=== PATIENT | male | born 1940 | race Caucasian/White ===

== ENCOUNTER 2018-07-01 20:37 | Emergency (ER) | payer MEDICARE ==
[2018-07-01 21:34] LABS: #Basophils 0.1 thou/uL (0.0-0.2); #Eosinphils 0.2 thou/uL (0.0-0.7); #Lymphocytes 1.7 thou/uL (1.20-3.40); #Monocytes 0.7 thou/uL (0.11-0.59); #Neutrophils 4.7 thou/uL (1.40-6.50); %Eosinophils 3.3 % (0.0-10.0); %Lymphocytes 22.4 % (21.0-51.0); %Monocytes 9.5 % (0.0-10.0); %Neutrophils 63.9 % (42.0-75.0); Hemoglobin 13.7 g/dL (14.0-18.0); Mean Corpuscular HGB CONC 34.5 g/dL (32.0-36.0); Mean Corpuscular Volume 92.8 fL (78.0-98.0); Mean Platelet Volume 7.6 fL (7.4-10.4); Platelet Count 172 thou/uL (130-400); RBC Distribution Width 10.7 % (11.5-14.5); White Blood Cell (WBC) Count 7.4 thou/uL (4.8-10.8)
[2018-07-01 21:43] LABS: Anion Gap 11 mmol/L (10-20); BUN (Urea Nitrogen) 15 mg/dL (8.4-25.7); Calc. Creatinine Clearance 0 mL/min (70-130); Calcium 9.1 mg/dL (7.8-10.44); Carbon Dioxide 28 mmol/L (23-31); Chloride 106 mmol/L (98-107); Estimated GFR-MDRD Greater than 90; Glucose 111 mg/dL (83-110); Potassium 3.8 mmol/L (3.5-5.1); Sodium 141 mmol/L (136-145)
[2018-07-01 21:46] LABS: CKMB 0.8 ng/mL (0-6.6); Troponin I 0.015 ng/mL (< 0.028)
[2018-07-01] MEDS ORDERED: Ondansetron HCl/PF 4 MG/2 ML Vial ONE (21:46)
--- NOTE | 2018-07-01 21:58 | CT ---
CT BRAIN WITHOUT CONTRAST 07/01/18 HISTORY: Vertigo. COMPARISON: None. FINDINGS: No acute territorial infarct or hemorrhage. No midline shift or mass effect. Ventricular size and ext ra-axial CSF spaces are normal. Calvarium is intact. Mastoids are clear. Mild mucosal thickening of the ethmoids. Mucosal retention c yst in both maxillary sinuses. Clivus is intact. IMPRESSION: No acute intracranial abnormality. POS: [facility]
[2018-07-01] MEDS ORDERED: Meclizine HCl 25 MG TAB ONE (22:34)
[2018-07-01] MEDS ORDERED: Diazepam 5 MG TAB ONE (23:12)
== END 2018-07-02 00:06 | disposition home or self-care (01) ==
LOC: SCSER 20:37
DX: H81.11 Benign paroxysmal vertigo, right ear (principal); I48.91 Unspecified atrial fibrillation
CPT/HCPCS: 70450; 80048; 82553; 84484; 85025; 93005; 96374; J2405

== ENCOUNTER 2019-11-03 16:49 | Observation (INO) | payer MEDICARE ==
[2019-11-03 17:15] LABS: #Eosinphils 0.1 thou/uL (0.0-0.7); #Lymphocytes 1.1 thou/uL (1.20-3.40); #Monocytes 0.6 thou/uL (0.11-0.59); #Neutrophils 4.5 thou/uL (1.40-6.50); %Basophils 0.6 % (0.0-1.0); %Lymphocytes 17.9 % (21.0-51.0); %Monocytes 9.4 % (0.0-10.0); %Neutrophils 70.1 % (42.0-75.0); Hemoglobin 13.7 g/dL (14.0-18.0); Mean Corpuscular HGB CONC 32.3 g/dL (32.0-36.0); Mean Corpuscular Hemoglobin 31.4 pg (27.0-31.0); Mean Corpuscular Volume 97.3 fL (78.0-98.0); Mean Platelet Volume 8.6 fL (7.4-10.4); Platelet Count 169 thou/uL (130-400); Red Blood Cell (RBC) Count 4.35 mill/uL (4.70-6.10); White Blood Cell (WBC) Count 6.4 thou/uL (4.8-10.8)
[2019-11-03 17:35] LABS: ALT (SGPT) 16 U/L (8-55); AST (SGOT) 14 U/L (5-34); Albumin 3.9 g/dL (3.4-4.8); Alkaline Phosphatase 87 U/L (40-110); Anion Gap 11 mmol/L (10-20); BUN (Urea Nitrogen) 11 mg/dL (8.4-25.7); Bilirubin, Total 0.8 mg/dL (0.2-1.2); Calc. Creatinine Clearance 0 mL/min (70-130); Calcium 8.7 mg/dL (7.8-10.44); Carbon Dioxide 29 mmol/L (23-31); Chloride 106 mmol/L (98-107); Estimated GFR-MDRD 80; Globulin 2.8 g/dL (2.4-3.5); Glucose 105 mg/dL (83-110); Potassium 3.5 mmol/L (3.5-5.1); Protein, Total 6.7 g/dL (5.8-8.1); Sodium 142 mmol/L (136-145)
--- NOTE | 2019-11-03 19:35 | RAD ---
RADIOGRAPH CHEST 1 VIEW: DATE: 11/03/2019 HISTORY: 78-year-old male with atrial fibrillation FINDINGS: The thoracic aorta is tortuous and ectatic. There is no evidence of airspace density, cardiomegaly, p ulmonary edema, or pneumothorax. The lateral costophrenic angles are not effaced. IMPRESSION: 1) No acute pulmonary findings. 2) ectasia of thoracic aorta.
[2019-11-03 20:00] LABS: CKMB 1.5 ng/mL (0-6.6)
[2019-11-03] MEDS ORDERED: Aspirin Chewable 81 MG TAB ONE (21:16)
[2019-11-03 22:31] LABS: Troponin I 0.074 ng/mL (< 0.028)
[2019-11-03] MEDS ORDERED: Ondansetron PF 4 MG/2 ML Vial IVP PRN (22:41)
[2019-11-03] MEDS ORDERED: Acetaminophen 325 MG TAB PO PRN (22:41)
[2019-11-03] MEDS ORDERED: Ondansetron ODT 4 MG TAB SL PRN (22:41)
[2019-11-03 22:45] VITALS: BMI 31.1
[2019-11-04] MEDS ORDERED: cloNIDine 0.1 MG TAB PO PRN (00:01)
[2019-11-04] MEDS ORDERED: Ondansetron PF 4 MG/2 ML Vial IVP PRN (00:01)
[2019-11-04] MEDS ORDERED: hydrALAZINE 20 MG/ML VIAL SLOW IVP PRN (00:01)
[2019-11-04] MEDS ORDERED: Promethazine HCl 12.5 MG in Sodium Chloride 0.9% 50 ML IVPB PRN (00:01)
--- NOTE | 2019-11-04 00:01 | PDOC.HHP ---
Hospitalist HPI - History of Present Illness Chest pain History of Present Illness: Patient is a 78 year old male with PMH afib who presents to ED after nurse told him to come here, darian was having chest pain and was told he was in afib by the nurse. He reported some urinary difficulty last night, in ED prostate exam with diffuse enlargement and PSA checked and 20. At time of interview, patient denies having chest pain but admits to urinary difficulty. EKG NSR in ED. ED Course: VITAL SIGNS WedNov 03, 2019 22:25 WINDY Alcazar, [facility] BP: 133/72 Pulse: 73 Resp: 16 Temp: 98.4 (Oral) Pain: 0 O2 sat: 95 on (Room Air) Time: 11/03/2019 22:25. EKG NSR [address] changes Hospitalist ROS - Review of Systems Constitutional: denies: fever, chills, sweats, weakness, malaise, other Eyes: denies: pain, vision change, conjunctivae inflammation, eyelid inflammation, redness, other ENT: denies: ear pain, ear discharge, nose pain, nose discharge, nose congestion , mouth pain, mouth swelling, throat pain, throat swelling, other Respiratory: denies: cough, dry, shortness of breath, hemoptysis, SOB with excertion, pleuritic pain, sputum, wheezing, other Cardiovascular: reports: chest pain, light headedness. denies: palpitations Gastrointestinal: denies: nausea, vomiting, abdominal pain, diarrhea, constipation, melena, hematochezia, other Genitourinary: reports: other (difficulty urinatinh) Musculoskeletal: denies: neck pain, shoulder pain, arm pain, back pain, hand pain, leg pain, foot pain, other Skin: denies: rash, lesions, shayne, bruising, other Neurological: denies: weakness, numbness, incoordination, change in speech, confusion, seizures, other All other systems reviewed; all pertinent +/- noted in HPI/Subj Hospitalist History - Past Medical History Other Medical History: enlarged prostate. AFIB. - Past Surgical History Other Surgical History: tonsillectomy, inguinal hernia repair. - Family History Family History: reports: no pertinent history - Social History Other Social History: Patient denies alcohol use, Patient denies drug use, Patient has no smoking history - Exam General Appearance: NAD, awake alert Eye: PERRL, anicteric sclera ENT: normocephalic atraumatic, no oropharyngeal lesions, moist mucosa Neck: supple, symmetric, no JVD, no thyromegaly, no lymphadenopathy, no carotid bruit Heart: RRR, no murmur, no gallops, no rubs, normal peripheral pulses Respiratory: CTAB, no wheezes, no rales, no ronchi, normal chest expansion, no tachypnea, normal percussion Gastrointestinal: soft, non-tender, non-distended, normal bowel sounds, no palpable masses, no hepatomegaly, no splenomegaly, no bruit Extremities: no cyanosis, no clubbing, no edema Skin: normal turgor, no lesions, no rashes Neurological: cranial nerve grossly intact, normal sensation to touch, no weakness, no focal deficits, no new deficit Musculoskeletal: normal tone, normal strength, no muscle wasting Psychiatric: normal affect, normal behavior, A&O x 3 Hospitalist Results - Labs Result Diagrams: 11/03/19 17:02 11/03/19 17: Lab results: WBC 6.4 thou/uL (4.8-10.8) 11/03/19 17:02 Hgb 13.7 g/dL (14.0-18.0) L 11/03/19 17: Hct 42.3 % (42.0-52.0) 11/03/19 17:02 MCV 97.3 fL (78.0-98.0) 11/03/19 17:02 Plt Count 169 thou/uL (130-400) 11/03/19 17: Neutrophils % 70.1 % (42.0-75.0) 11/03/19 17:02 Sodium 142 mmol/L (136-145) 11/03/19 17:02 Potassium 3.5 mmol/L (3.5-5.1) 11/03/19 17:02 Chloride 106 mmol/L (98-107) 11/03/19 17:02 Carbon Dioxide 29 mmol/L (23-31) 11/03/19 17: BUN 11 mg/dL (8.4-25.7) 11/03/19 17: Creatinine 0.92 mg/dL (0.7-1.3) 11/03/19 17:02 Glucose 105 mg/dL (83-110) 11/03/19 17:02 Calcium 8.7 mg/dL (7.8-10.44) 11/03/19 17:02 Total Bilirubin 0.8 mg/dL (0.2-1.2) 11/03/19 17:02 AST 14 U/L (5-34) 11/03/19 17:02 ALT 16 U/L (8-55) 11/03/19 17:02 Alkaline Phosphatase 87 U/L (40-110) 11/03/19 17:02 CK-MB (CK-2) 1.5 ng/mL (0-6.6) 11/03/19 19:09 Troponin I 0.074 ng/mL (< 0.028) H 11/03/19 21:59 Serum Total Protein 6.7 g/dL (5.8-8.1) 11/03/19 17:02 Albumin 3.9 g/dL (3.4-4.8) 11/03/19 17:02 Hospitalist H&P A/P - Plan Plan: Patient is a 78 year old male with PMH afib # atrial fibrillation - resolved now, troponing elevated, trend troponin, continue DVT ppx lovenox and ASA, telemetry, consider cardiology consult based on clinical progress # elevated PSA, enlarged prostate - consult urology, bladder scan q6h and straight cath or sotomayor if over 300cc residual
[2019-11-04] MEDS ORDERED: HYDROcodone/Acetaminophen 5/325 mg Tablet PO PRN (00:03)
[2019-11-04] MEDS ORDERED: Bisacodyl 10 MG SUPP PR PRN (00:03)
[2019-11-04] MEDS ORDERED: Bisacodyl 5 MG TAB PO PRN (00:03)
[2019-11-04 04:39] LABS: #Eosinphils 0.2 thou/uL (0.0-0.7); #Lymphocytes 1.7 thou/uL (1.20-3.40); #Monocytes 0.6 thou/uL (0.11-0.59); #Neutrophils 3.9 thou/uL (1.40-6.50); %Basophils 0.6 % (0.0-1.0); %Eosinophils 3.1 % (0.0-10.0); %Lymphocytes 26.2 % (21.0-51.0); %Monocytes 8.9 % (0.0-10.0); %Neutrophils 61.2 % (42.0-75.0); Hemoglobin 13.1 g/dL (14.0-18.0); Mean Corpuscular HGB CONC 32.7 g/dL (32.0-36.0); Mean Corpuscular Hemoglobin 32.4 pg (27.0-31.0); Mean Platelet Volume 8.5 fL (7.4-10.4); Platelet Count 164 thou/uL (130-400); Red Blood Cell (RBC) Count 4.05 mill/uL (4.70-6.10); White Blood Cell (WBC) Count 6.4 thou/uL (4.8-10.8)
[2019-11-04 04:58] LABS: Anion Gap 10 mmol/L (10-20); BUN (Urea Nitrogen) 15 mg/dL (8.4-25.7); Calc. Creatinine Clearance 100 mL/min (70-130); Calcium 8.6 mg/dL (7.8-10.44); Carbon Dioxide 28 mmol/L (23-31); Chloride 109 mmol/L (98-107); Estimated GFR-MDRD 82; Glucose 90 mg/dL (83-110); Sodium 143 mmol/L (136-145)
[2019-11-04 05:05] LABS: Troponin I 0.065 ng/mL (< 0.028)
[2019-11-04] MEDS: Aspirin 81 mg Enteric Coated Tablet PO SCH (09:00)
[2019-11-04] MEDS ORDERED: Enoxaparin Sodium 40 MG/0.4 ML SYRINGE SC SCH (09:00)
[2019-11-04] MEDS: Polyethylene Glycol 3350 17 GM Packet PO SCH (09:01)
[2019-11-04 10:24] LABS: Troponin I 0.051 ng/mL (< 0.028)
[2019-11-04 16:20] LABS: Troponin I 0.045 ng/mL (< 0.028)
--- NOTE | 2019-11-04 16:56 | PDOC.HOSPP ---
- Subjective Encounter Date: 11/04/19 Encounter Time: 16:45 Subjective: f/u for CP, near syncope, PAF with return to sinus mechanism and elevated Troponin I. - Objective Vital Signs & Weight: Vital Signs (12 hours) Temp Pulse Pulse Pulse Resp BP BP 11/04/19 15:12 97.9 F 64 16 11/04/19 11:48 98.0 F 66 16 11/04/19 10:32 65 67 153/85 H 145/76 H 11/04/19 07:43 97.7 F 67 20 BP BP BP Pulse Ox Pulse Ox 11/04/19 15:12 119/66 98 11/04/19 11:48 132/68 95 11/04/19 10:32 97 11/04/19 07:43 146/79 H 134/66 145/77 H 95 Weight Weight 226 lb 6.4 oz I&O: 11/03/19 11/04/19 11/05/19 06:59 06:59 06:59 Intake Total 360 Output Total 300 1135 Balance -300 -775 Result Diagrams: 11/04/19 04:21 11/04/19 04:21 Additional Labs: Laboratory Tests 11/03/19 11/03/19 11/03/19 17:02 18:10 19:09 Hgb 13.7 L Troponin I 0.052 H Prostate Specific Ag 20.73 H 11/03/19 11/04/19 11/04/19 21:59 00:54 04:21 Hgb Troponin I 0.074 H 0.070 H 0.065 H Prostate Specific Ag 11/04/19 11/04/19 09:33 15:44 Hgb Troponin I 0.051 H 0.045 H Prostate Specific Ag Radiology Reviewed by me: Yes (PCXR - no acute process) EKG Reviewed by me: Yes (Tele - SR) Hospitalist ROS - Medication Medications: Active Medications Generic Name Dose Route Start Last Admin Trade Name Freq PRN Reason Stop Dose Admin Aspirin 81 mg 11/04/19 09:00 11/04/19 09:00 Ecotrin PO 81 mg DAILY KATHY Administration Enoxaparin Sodium 40 mg 11/04/19 09:00 11/04/19 09:00 Lovenox SC 40 mg 0900 KATHY Administration Pantoprazole Sodium 40 mg 11/04/19 09:00 11/04/19 09:00 Protonix PO 40 mg DAILY KATHY Administration Polyethylene Glycol 17 gm 11/04/19 09:00 11/04/19 09:01 Miralax PO 17 gm DAILY KATHY Administration - Exam General Appearance: NAD, awake alert Eye: PERRL, anicteric sclera ENT: normocephalic atraumatic, no oropharyngeal lesions Neck: supple, symmetric, no JVD, no thyromegaly Heart: RRR, no gallops, no rubs, normal peripheral pulses Respiratory: CTAB, no wheezes, no rales, no ronchi, normal chest expansion Gastrointestinal: soft, non-tender, non-distended, normal bowel sounds, no palpable masses Extremities: no cyanosis, no clubbing, no edema Skin: normal turgor, no lesions Neurological: cranial nerve grossly intact, no new deficit Musculoskeletal: normal tone Psychiatric: normal affect, A&O x 3 Hosp A/P (1) Syncope Code(s): R55 - SYNCOPE AND COLLAPSE Status: Acute Plan: Likely due to #2, check 2D echo, Carotid sono, Orthostatic vitals (2) Atrial fibrillation Code(s): I48.91 - UNSPECIFIED ATRIAL FIBRILLATION Status: Acute Qualifiers: Atrial fibrillation type: paroxysmal Qualified Code(s): I48.0 - Paroxysmal atrial fibrillation Plan: PAF, check Echo, Cardiology consult appreciated, plan for either SHUTTLE THREADER vs heart cath, start Metoprolol 12.5mg BID (3) NSTEMI (non-ST elevated myocardial infarction) Code(s): I21.4 - NON-ST ELEVATION (NSTEMI) MYOCARDIAL INFARCTION Status: Acute Plan: Likely Type II due to demand ischemia due to A-fib, ASA, plan for either SHUTTLE THREADER vs heart cath (4) BPH (benign prostatic hyperplasia) Code(s): N40.0 - BENIGN PROSTATIC HYPERPLASIA WITHOUT LOWER URINRY TRACT SYMP Status: Chronic Plan: Outpt follow with Urology - Plan plan discussed w/ family, out of bed/ambulate, DVT proph w/SCDs Stable currently Continue ASA Start Metoprolol 12.5mg BID 2D echo pending Carotid sono/Orthostatic vitals Cardiology consult appreciated
--- NOTE | 2019-11-04 17:58 | CON ---
DATE OF CONSULTATION: 11/04/2019 REQUESTING PHYSICIAN: Mitch Woodall MD REASON FOR CONSULTATION: Elevated PSA and urinary retention. HISTORY OF PRESENT ILLNESS: Mr. Mckenzie is a 78-year-old male with past urologic history significant for elevated PSA and BPH, who has not followed up with Urology in several years. The patient has not received routine medical care in quite some time as well. He presented to the [facility] ER after home health nurse told him he was having an episode of atrial fibrillation while she was there evaluating his . The patient had had voiding difficulty several days previously. He actually went to the emergency department and had a catheter placed, and there was 1200 mL residual. They took the catheter out and sent him home and had him follow up with Urology; however, he did not keep that appointment. The patient was admitted for atrial fibrillation. By the time he presented, he had taken metoprolol at home, and he was in normal sinus rhythm. Given his urinary difficulty, he had a prostate exam which demonstrated diffuse enlargement and a PSA was performed during this hospitalization and was 20. Urology was consulted for further evaluation. Currently, the patient said his urinary symptoms have improved. He has voided approximately 4 times since noon with a volume over 1 L, they have been checking postvoid residuals and these have been acceptable. He denies any gross hematuria. He feels that he is emptying his bladder to completion. The patient has history of a prostate biopsy well over 20 years ago. He states that his PSA has been as high as 15 in the past. For a while, he took finasteride and terazosin, but has not taken this in years. He has no other complaints at this time. REVIEW OF SYSTEMS: Full 12-point review of systems was performed and is negative other than that mentioned in HPI. PAST MEDICAL HISTORY: BPH and atrial fibrillation. PAST SURGICAL HISTORY: Tonsillectomy, inguinal hernia repair. FAMILY HISTORY: Noncontributory. SOCIAL HISTORY: No alcohol, tobacco, or illicit drugs. HOME MEDICATIONS: None. PHYSICAL EXAMINATION: VITAL SIGNS: Temperature 97.9, pulse 64, respirations 16, oxygen saturation 98% on room air, and blood pressure 119/66. GENERAL: He is awake and alert, in no apparent distress. CARDIOVASCULAR: Regular rate and rhythm. PULMONARY: Breathing unlabored. ABDOMEN: Soft, nontender/nondistended. No masses or organomegaly. No suprapubic tenderness to palpation. No CVA tenderness. EXTREMITIES: Warm, well perfused. No edema. NEUROLOGIC: No focal deficits. LABORATORY DATA: Hemoglobin 13.1, hematocrit 40.1. Chemistry; sodium 143, potassium 4.0, chloride 109, bicarb 28, BUN 15, and creatinine 0.9. Troponins peaked at 0.074 and currently is 0.045. PSA is 20.73. ASSESSMENT: A 78-year-old male with benign prostatic hypertrophy and elevated PSA. PLAN: Currently, the patient is voiding adequately. I recommend he start tamsulosin and continue this as an outpatient at 0.4 mg daily. He was provided my contact information, and I discussed the need for him to follow up as an outpatient for further evaluation of his BPH and elevated PSA. I reviewed possible etiologies of elevated PSA with the patient. All questions were addressed. Start tamsulosin. Further evaluation as an outpatient. Job ID: [id number]
[2019-11-04] MEDS: Metoprolol Tartrate 25 MG TAB PO SCH (20:17)
[2019-11-04] MEDS: Apixaban 5 MG TAB PO SCH (20:17)
[2019-11-04] MEDS ORDERED: Tamsulosin HCl 0.4 MG CAP PO SCH (21:00)
--- NOTE | 2019-11-04 21:10 | CON ---
DATE OF CONSULTATION: 11/04/2019 INDICATION FOR CONSULTATION: A 78-year-old patient with intermittent atrial fibrillation. HISTORY OF PRESENT ILLNESS: This is a 78-year-old gentleman who has had a history of atrial fibrillation in the past. He was seen back in [address] Tate, at which time he had very similar episodes as to what occurred on this time. He was at home, became lightheaded and dizzy, laid down on the floor on this admission, but on last admission he became lightheaded and dizzy and was found to be in atrial fibrillation and rapid ventricular response. At this time, home health care was at his house taking care of the , visiting the when he was in the kitchen table, complaining of being dizzy or lightheaded and sitting down to lie down on the floor and he was noticed to be in atrial fibrillation with rapid ventricular response. He was brought to the emergency room. He has been placed on IV diltiazem and then converted back to sinus rhythm. At this time, he remains in sinus rhythm. On discussion with the patient, he said he has had several episodes in the last year or so where he has short episodes of atrial fibrillation and feels very badly. He stops doing what he is doing and usually it just resolves. When he was seen before in the hospital, he did not follow up in the office. He has not had an echocardiogram or a stress test as far as I can determine. He has not been taking medications for the atrial fibrillation and also not any oral anticoagulation. We had a long discussion about that and also when someone is in the room we encouraged him to take his medications. PAST MEDICAL HISTORY: Significant for intermittent atrial fibrillation. He has had a hernia repair, he had varicose veins, but he has not had any venous stripping. Otherwise, he appears to be relatively healthy gentleman. He has had no other significant past medical history. He does have some benign prostatic hypertrophy. He has also had a tonsillectomy. SOCIAL HISTORY: He is . He has children, who are alive and well. He has no alcohol or tobacco abuse. He was a teacher in the past. ALLERGIES: HE HAS NO KNOWN DRUG ALLERGIES. MEDICATIONS: Home medications include: 1. Terazosin. 2. Proscar. 3. Metoprolol 25 mg half a tab twice daily. REVIEW OF SYSTEMS: A 12-point review of system is unremarkable except what is noted in the history of present illness. PHYSICAL EXAMINATION: GENERAL: Reveals a well-developed, well-nourished gentleman, who is in no acute distress. He is alert. He is oriented. VITAL SIGNS: Blood pressure is 145/76. He did not have any evidence of orthostasis. Heart rate is 67 and regular at this time. He is afebrile. Respiratory rate is 20. HEENT: Shows the head to be normocephalic and atraumatic. NECK: Carotid pulses are present. There are no bruits. CHEST: Clear to auscultation. No rales, rhonchi, or wheezing. CARDIOVASCULAR: Reveals at this time a regular rate and rhythm. He has a normal S1, S2. There was no S3 or S4. There were no significant murmurs, heaves, thrills, bruits, or rubs noted. ABDOMEN: Soft and nontender. Positive bowel sounds are present. There is no organomegaly or masses noted. Femoral pulses are present. EXTREMITIES: Show no clubbing, cyanosis, or edema. He has evidence of varicose veins and large legs, but no edema is noted. Pedal pulses are present. NEUROLOGIC: He is fully intact. He is able to ambulate without difficulties. LABORATORY DATA: Shows a troponin I on admission of 0.052, which increased up to 0.074 and then decreased back down to 0.045 and most likely associated with the tachycardia with the atrial fibrillation. His other laboratory data shows sodium of 143, BUN was 15, creatinine 0.9, blood sugar was 90. Hemoglobin is 13.1, WBC of 6.4, platelet count of 164,000. IMPRESSION: 1. Elderly gentleman with intermittent atrial fibrillation, which has converted back to sinus rhythm with medical management. I would suggest at this time that we start him on some type of oral medication to prevent his atrial fibrillation, but would advise also that he undergo an echocardiogram as well as stress testing to rule out evidence of underlying ischemia and also to evaluate the left atrial size and the left ventricular systolic function prior to starting medications. At this time, he remains stable on the beta blockers at a low dose. Once he is discharged from the hospital, would advise he undergo at least a 2-4 week Holter monitor to see whether or not the medication is functioning correctly and to see whether or not he continues to have episodes of atrial fibrillation. 2. History of benign prostatic hypertrophy, this is stable. I believe his BNP was slightly elevated. This can be dealt with as an outpatient. Further recommendations will depend on the results of the echocardiogram. We are unable to get any stress testing at this time due to problems with the equipment, but certainly he could undergo the stress testing as an outpatient. I have also suggested that he take some type of oral anticoagulation and I would suggest in this gentleman that he start Eliquis and then also would consider either amiodarone or Multaq in this elderly gentleman. Job ID: [id number]
[2019-11-05 05:16] LABS: #Eosinphils 0.3 thou/uL (0.0-0.7); #Lymphocytes 1.3 thou/uL (1.20-3.40); #Monocytes 0.6 thou/uL (0.11-0.59); %Basophils 0.4 % (0.0-1.0); %Lymphocytes 21.1 % (21.0-51.0); %Monocytes 9.6 % (0.0-10.0); %Neutrophils 64.8 % (42.0-75.0); Hemoglobin 12.9 g/dL (14.0-18.0); Mean Corpuscular HGB CONC 33.8 g/dL (32.0-36.0); Mean Corpuscular Hemoglobin 33.4 pg (27.0-31.0); Mean Corpuscular Volume 98.7 fL (78.0-98.0); Mean Platelet Volume 8.3 fL (7.4-10.4); Platelet Count 150 thou/uL (130-400); RBC Distribution Width 12.1 % (11.5-14.5); Red Blood Cell (RBC) Count 3.87 mill/uL (4.70-6.10); White Blood Cell (WBC) Count 6.2 thou/uL (4.8-10.8)
[2019-11-05 05:45] LABS: Anion Gap 11 mmol/L (10-20); BUN (Urea Nitrogen) 11 mg/dL (8.4-25.7); Calc. Creatinine Clearance 107 mL/min (70-130); Calcium 8.4 mg/dL (7.8-10.44); Carbon Dioxide 27 mmol/L (23-31); Chloride 107 mmol/L (98-107); Estimated GFR-MDRD 89; Glucose 98 mg/dL (83-110); Potassium 3.7 mmol/L (3.5-5.1); Sodium 141 mmol/L (136-145)
--- NOTE | 2019-11-05 09:16 | PDOC.CPN ---
- Subjective Date: 11/05/19 Time: 09:24 Interval history: The pt seen and examined. No overnight events. No cardiac complaints. - Objective Allergies/Adverse Reactions: Allergies Allergy/AdvReac Type Severity Reaction Status Date / Time Penicillins Allergy Verified 11/03/19 22:47 Sulfa (Sulfonamide Allergy Verified 11/03/19 22:47 Antibiotics) milk AdvReac stops nose Verified 11/03/19 22:47 up, thick secretions Visit Medications: Current Medications Hydrocodone Bitart/Acetaminophen ([place] 5/325) 1 tab PO Q4H PRN PRN Reason: Moderate Pain (4-6) Albuterol/Ipratropium (Duoneb) 3 ml NEB Q2H PRN PRN Reason: SOB &/or Wheezing Apixaban (Eliquis) 5 mg PO BID [facility] Last Admin: 11/04/19 20:17 Dose: 5 mg Aspirin (Ecotrin) 81 mg PO DAILY [facility] Last Admin: 11/04/19 09:00 Dose: 81 mg Bisacodyl (Dulcolax) 10 mg PO DAILYPRN PRN PRN Reason: Constipation Bisacodyl (Dulcolax) 10 mg [place] DAILYPRN PRN PRN Reason: Constipation Clonidine (Catapres) 0.1 mg PO Q4H PRN PRN Reason: SBP > 160, use second Hydralazine HCl (Apresoline) 10 mg SLOW IVP Q6H PRN PRN Reason: SBP GREATER THAN 160 Promethazine HCl 12.5 mg/ (Sodium Chloride) 50.5 mls @ 202 mls/hr IVPB Q6H PRN PRN Reason: Nausea/vomiting, use second Metoprolol Tartrate (Lopressor) 12.5 mg PO BID [facility] Last Admin: 11/04/19 20:17 Dose: 12.5 mg Ondansetron HCl (Zofran) 4 mg IVP Q6H PRN PRN Reason: Nausea/Vomiting, use 1st Pantoprazole Sodium (Protonix) 40 mg PO DAILY [facility] Last Admin: 11/04/19 09:00 Dose: 40 mg Polyethylene Glycol (Miralax) 17 gm PO DAILY [facility] Last Admin: 11/04/19 09:01 Dose: 17 gm Tamsulosin HCl (Flomax) 0.4 mg PO HS [facility] Last Admin: 11/04/19 20:16 Dose: 0.4 mg Vital Signs & Weight: Vital Signs Temp Pulse Resp BP BP BP BP 11/05/19 07:22 98.1 F 64 18 139/79 152/79 H 145/76 H 11/05/19 04:55 62 18 143/81 H Pulse Ox 11/05/19 07:22 94 L 11/05/19 04:55 95 Weight 226 lb 6.4 oz - Physical Exam General: alert & oriented x3 HEENT: mucus membranes moist Neck: supple neck Cardiac: regular rate and rhythm, S1/S2 Lungs: clear to auscultation Extremities: no edema Musculoskeletal: normal range of motion - Labs Result Diagrams: 11/05/19 04:59 11/05/19 04:59 Troponin/CKMB CK-MB (CK-2) 1.5 ng/mL (0-6.6) 11/03/19 19:09 Troponin I 0.045 ng/mL (< 0.028) H 11/04/19 15:44 - Telemetry Sinus rhythms and dysrhythmias: sinus rhythm - Assessment/Plan Assessment/Plan: 1. Prox Afib with RVR - remains in SR; cont. Metoprolol and Eliquis; waiting for Echo and Stress test; The pt may need EVR for 2-4 wks to eval recurrent afib 2. s/p Syncopal episode - Asymptomatic; Orthostatic BP is stable; waiting for carotid study result; plan for 2-4 wk EVR 3. BPH MAR reviewed * Dr Tate's pt Pt. seen and eval. by me. I agree with the A/P by the A[employer] WORKER.Further recommendations after above studies have been performed. Chest clear. RRR. gjm
[2019-11-05] MEDS ORDERED: ADENOSINE 60 MG/20 ML VIAL ONE (09:53)
--- NOTE | 2019-11-05 11:33 | ULT ---
EXAM: Carotid Doppler PROVIDED CLINICAL HISTORY: Near syncope COMPARISON: None FINDINGS: Grayscale and color Doppler sonography with spectral analysis was performed of the extracranial carot id system bilaterally. There is no evidence for a hemodynamically significant internal carotid artery stenosis by peak systolic velocity or ratio criteria. Antegrade flow is seen in the vertebral arteries. IMPRESSION: No sonographic evidence for a hemodynamically significant internal carotid artery stenosis.
[2019-11-05] MEDS: Metoprolol Tartrate 25 MG TAB PO SCH (14:33)
[2019-11-05] MEDS: Polyethylene Glycol 3350 17 GM Packet PO SCH (14:33)
[2019-11-05] MEDS: Apixaban 5 MG TAB PO SCH (14:33)
[2019-11-05] MEDS: Aspirin 81 mg Enteric Coated Tablet PO SCH (14:46)
--- NOTE | 2019-11-05 14:57 | NM ---
EXAM: NM Cardiac Stress W EF WF PROVIDED CLINICAL HISTORY: Atrial fibrillation COMPARISON: None RADIOPHARMACEUTICAL: 33 millicuries technetium 99m labeled sestamibi IV stress 9.8 millicuries technetium 99m labeled sestamibi IV rest FINDINGS: There is normal, homogeneous distribution of radiotracer throughout the left ventricular myocardium. Gated data demonstrate normal myocardial wall motion and thickening with calculated LVEF 63%. Calculated TID is 1.19. IMPRESSION: 1. No scintigraphic evidence for ischemia. 2. Calculated LVEF 63%.
[2019-11-05 15:26] VITALS: BP 176/81; TEMP 97.9
--- NOTE | 2019-11-06 00:46 | DIS ---
DATE OF ADMISSION: 11/03/2019 DATE OF DISCHARGE: 11/05/2019 DISCHARGE DIAGNOSES: 1. Paroxysmal atrial fibrillation with variable rate, stable. 2. Syncope secondary to #1. 3. Non-ST elevation myocardial infarction type 2 secondary to #1. 4. Benign prostatic hyperplasia. CONSULTATIONS: Dr. Bhagat with Cardiology Service. PERTINENT LABORATORY AND X-RAY FINDINGS: Troponin I ranged between 0.04 to 0.074. Prostate specific antigen 20.73. CBC showed a hemoglobin ranged between 12.9 to 13.7. Portable chest x-ray dated 11/03/2019 showed no acute cardiopulmonary process. Carotid Doppler study dated 11/05/2019, showed no hemodynamically significant stenosis. Cardiolite stress test dated 11/05/2019, showed no evidence for ischemia with calculated ejection fraction of 63%. 2D transthoracic echocardiogram pending at the time of this dictation. HOSPITAL COURSE: The patient was observed on the telemetry unit after initially presenting with chest pain and hypertension with associated atrial fibrillation. The patient was initially noted with paroxysmal atrial fibrillation with return to sinus mechanism. The patient was evaluated by the Cardiology Service due to mild troponin I elevation secondarily to the arrhythmia. The patient was initiated on aspirin 81 mg daily as well as Eliquis 5 mg b.i.d. and metoprolol 12.5 mg b.i.d. Current recommendations are for medical management with outpatient followup with an event monitor. The patient overall remained clinically stable during the hospital course, undergoing Cardiolite stress testing showing no evidence of underlying ischemia with calculated ejection fraction of 63%. 2D transthoracic echocardiogram was also performed with results pending at the time of this dictation. I have examined the patient at the time of discharge and discussed followup instructions. The patient verbalized understanding and agreement, ready for discharge on 11/05/2019. DISCHARGE MEDICATIONS: 1. Eliquis 5 mg p.o. b.i.d. 2. Metoprolol tartrate 12.5 mg p.o. b.i.d. 3. Enteric-coated aspirin 81 mg p.o. daily. 4. Flomax 0.4 mg p.o. at bedtime. 5. Terazosin 5 mg p.o. at bedtime. 6. Proscar 5 mg p.o. at bedtime. FOLLOWUP: The patient may follow up with a primary care provider of choice as the patient is wanting to pursue setting up his own appointment. The patient will follow up with Dr. Tate with [facility] and to call his office for appointment time and date to establish an event monitor. CONDITION ON DISCHARGE: Stable. ACTIVITY: Ad-venita. DIET: Heart healthy. CODE STATUS: Full. DISPOSITION: To home, 11/05/2019. Job ID: [id number]
--- NOTE | 2019-11-09 08:50 | STRESS ---
Acquisition Time: 2019-11-05 12:34:46 Total Exercise Time: 00:04:00 Test Indications: RECURRENT A-FIB Medications: Protocol: ADENOSINE Max HR: 086 BPM 60% of Pred: 143 BPM Max BP: 144/070 mmHG Max Work Load: 1.0 METS RESTING ECG: SINUS BRADYCARDIA AT 57 BPM SYMPTOMS: NONE APPROPRIATE BP RESPONSE FOR ADENOSINE ECTOPY: RARE PACS ECG STRESS: NO SIGNIFICANT CHANGES INTERPRETATION: NEGATIVE/AWAIT NUCLEAR IMAGES FOR DEFINITIVE DIAGNOSIS Confirmed by HEATHER REID ([id number]), medical editor TAMARA GARCIA ([id number]) on 11/09/2019 8:49:46 AM Referred By: Jenny REID Confirmed By:HEATHER REID
== END 2019-11-05 16:21 | disposition home or self-care (01) ==
LOC: ERS 16:49 → 2SW 22:34
PROVIDERS: ADMIT Internal Medicine; ATTEND Internal Medicine
DX: I48.0 Paroxysmal atrial fibrillation (principal); I21.A1 Myocardial infarction type 2; N40.0 Benign prostatic hyperplasia without lower urinary tract symptoms; Z79.899 Other long term (current) drug therapy; Z88.0 Allergy status to penicillin; Z88.2 Allergy status to sulfonamides; Z91.011 Allergy to milk products
CPT/HCPCS: 71045; 78452; 80048 ×2; 80053; 82553; 84484 ×4; 85025 ×3; 93005; 93017; 93306; 93880; 94760; 97116; 97139; 99285; A9500; G0103; 36415; 51798; 96372; G0378; J0153; J1650

== ENCOUNTER 2020-03-27 14:20 | Inpatient (IN) | payer MEDICARE ==
[2020-03-27 15:15] LABS: #Basophils 0.1 thou/uL (0.0-0.2); #Eosinphils 0.1 thou/uL (0.0-0.7); #Lymphocytes 1.5 thou/uL (1.20-3.40); #Monocytes 0.6 thou/uL (0.11-0.59); #Neutrophils 4.2 thou/uL (1.40-6.50); %Eosinophils 1.1 % (0.0-10.0); %Lymphocytes 23.3 % (21.0-51.0); %Monocytes 9.8 % (0.0-10.0); %Neutrophils 64.8 % (42.0-75.0); Mean Corpuscular HGB CONC 33.4 g/dL (32.0-36.0); Mean Corpuscular Hemoglobin 32.7 pg (27.0-31.0); Mean Platelet Volume 9.8 fL (7.4-10.4); Platelet Count 132 thou/uL (130-400); RBC Distribution Width 14.4 % (11.5-14.5); White Blood Cell (WBC) Count 6.5 thou/uL (4.8-10.8)
[2020-03-27 15:36] LABS: ALT (SGPT) 34 U/L (8-55); AST (SGOT) 23 U/L (5-34); Albumin 3.7 g/dL (3.4-4.8); Alkaline Phosphatase 82 U/L (40-110); Anion Gap 13 mmol/L (10-20); BUN (Urea Nitrogen) 30 mg/dL (8.4-25.7); Bilirubin, Total 1.4 mg/dL (0.2-1.2); Calc. Creatinine Clearance 0 mL/min (70-130); Carbon Dioxide 24 mmol/L (23-31); Chloride 105 mmol/L (98-107); Estimated GFR-MDRD 42; Globulin 2.7 g/dL (2.4-3.5); Glucose 98 mg/dL (83-110); Potassium 4.8 mmol/L (3.5-5.1); Protein, Total 6.4 g/dL (5.8-8.1); Sodium 137 mmol/L (136-145)
[2020-03-27] MEDS ORDERED: Diltiazem 125 MG/25 ML ONE (15:58)
[2020-03-27] MEDS ORDERED: Furosemide 40 MG/4 ML VIAL ONE (16:28)
[2020-03-27] MEDS ORDERED: Diltiazem 125 MG in Sodium Chloride 0.9% 100 ML IVPB SCH (16:30)
--- NOTE | 2020-03-27 16:40 | RAD ---
Chest one view HISTORY: CHF. COMPARISON: 11/03/2019. FINDINGS: Cardiac silhouette is magnified and enlarged. Pulmonary vasculature is upper limits of norm al and accentuated by shallow inspiration. Patchy bibasilar parenchymal opacity. Likely accentuated by shallow inspiration. No lobar consolidation or evidence of pneumothorax. IMPRESSION : Borderline pulmonary vascular congestion/edema with mild cardiomegaly.
[2020-03-27] MEDS ORDERED: Acetaminophen 325 MG TAB PO PRN (17:37)
[2020-03-27] MEDS ORDERED: Bisacodyl 10 MG SUPP PR PRN (17:37)
[2020-03-27] MEDS ORDERED: Senokot S 8.6-50 MG TAB PO PRN (17:37)
[2020-03-27] MEDS ORDERED: Ondansetron PF 4 MG/2 ML Vial IVP PRN (17:37)
[2020-03-27] MEDS ORDERED: Guaifenesin DM 100-10/5 ML UDCUP PO PRN (17:37)
[2020-03-27] MEDS ORDERED: Calcium Carbonate 500 MG ChewTAB PO PRN (17:37)
[2020-03-27] MEDS: Famotidine 20 MG TAB PO SCH (21:20)
[2020-03-27] MEDS: Finasteride 5 MG TAB PO SCH (21:21)
[2020-03-27] MEDS: Tamsulosin HCl 0.4 MG CAP PO SCH (21:21)
[2020-03-27] MEDS: Carvedilol 3.125 MG TAB PO SCH (21:21)
[2020-03-27 22:36] VITALS: BMI 34.0
[2020-03-28 04:47] LABS: #Eosinphils 0.1 thou/uL (0.0-0.7); #Lymphocytes 1.3 thou/uL (1.20-3.40); #Monocytes 0.5 thou/uL (0.11-0.59); #Neutrophils 3.5 thou/uL (1.40-6.50); %Basophils 0.6 % (0.0-1.0); %Eosinophils 2.4 % (0.0-10.0); %Monocytes 9.7 % (0.0-10.0); %Neutrophils 63.3 % (42.0-75.0); Hemoglobin 13.7 g/dL (14.0-18.0); Mean Corpuscular HGB CONC 31.6 g/dL (32.0-36.0); Mean Corpuscular Hemoglobin 31.1 pg (27.0-31.0); Mean Corpuscular Volume 98.3 fL (78.0-98.0); Mean Platelet Volume 9.8 fL (7.4-10.4); Platelet Count 122 thou/uL (130-400); RBC Distribution Width 14.5 % (11.5-14.5); Red Blood Cell (RBC) Count 4.41 mill/uL (4.70-6.10); White Blood Cell (WBC) Count 5.6 thou/uL (4.8-10.8)
[2020-03-28 05:33] LABS: Carbon Dioxide 19 mmol/L (23-31)
[2020-03-28] MEDS: Diltiazem 125 MG in Sodium Chloride 0.9% 100 ML IVPB SCH ×2 (06:07→20:22)
[2020-03-28] MEDS: Furosemide 40 MG/4 ML VIAL SLOW IVP SCH ×2 (06:08→15:16)
[2020-03-28 06:28] LABS: Anion Gap 17 mmol/L (10-20); BUN (Urea Nitrogen) 26 mg/dL (8.4-25.7); Calc. Creatinine Clearance 71 mL/min (70-130); Calcium 8.4 mg/dL (7.8-10.44); Chloride 109 mmol/L (98-107); Estimated GFR-MDRD 56; Glucose 90 mg/dL (83-110); Potassium 4.3 mmol/L (3.5-5.1); Sodium 140 mmol/L (136-145)
--- NOTE | 2020-03-28 06:28 | HP ---
REASON FOR ADMISSION: Atrial fibrillation with RVR, CHF exacerbation, and acute kidney injury. HISTORY OF PRESENTING ILLNESS: The patient gives history of having seen his primary care physician for increasing lower extremity edema and was intitiated on Lasix. He was asked to come for blood work yesterday and again today. His primary care physician asked him to go to the emergency room likely for atrial fibrillation with RVR, on arrival here, the patient was in atrial fibrillation with RVR with rates going into 140's. He has no fever. No complaint of chest pain. The patient has mild orthopnea, but no PND. He has no exposure to coronavirus. He lives with his . No complaints of cough or expectoration. He has no current bleeding per rectum. PAST MEDICAL AND SURGICAL HISTORY: History of chronic atrial fibrillation, benign prostatic hypertrophy, tonsillectomy, inguinal hernia repair, diastolic dysfunction per prior echo done in October of this year. Nuclear stress test done in October showed no reversible ischemia. Varicose veins in lower extremities. CURRENT MEDICATIONS: The patient is on; 1. Lasix 20 mg daily. 2. Potassium chloride 20 mEq p.o. daily. 3. Metoprolol tartrate 25 mg twice daily. 4. Finasteride 5 mg daily. 5. Tamsulosin 0.4 mg daily. 6. Proscar 5mg daily. ALLERGIES: TO PENICILLIN, MILK, AND SULFA. PERSONAL HISTORY: Does not abuse alcohol or drugs. No history of smoking. FAMILY HISTORY: Mother at age 86, she had known history of CHF. Father of aneurysm and its complications at the age of 79. CODE STATUS: Do not attempt to resuscitate. This was discussed with the patient at bedside and son was a witness at bedside as well. REVIEW OF SYSTEMS: CONSTITUTIONAL: Negative for weight loss or gain, ability to conduct usual activities. SKIN: Negative for rash, itching. EYES: Negative for double vision, pain. ENT/MOUTH: Negative for nose bleeding, neck stiffness, pain, tenderness. CARDIOVASCULAR: Negative for palpitations, dyspnea on exertion, orthopnea. RESPIRATORY: Negative for shortness of breath, wheezing, cough, hemoptysis, fever or night sweats. GASTROINTESTINAL: Negative for poor appetite, abdominal pain, heartburn, nausea , vomiting, constipation, or diarrhea. GENITOURINARY: Negative for urgency, frequency, dysuria, nocturia. MUSCULOSKELETAL: Negative for pain, swelling. NEUROLOGIC/PSYCHIATRIC: Negative for anxiety, depression. ALLERGY/IMMUNOLOGIC: Negative for skin rash, bleeding tendency. PHYSICAL EXAMINATION: GENERAL: The patient is a 79 year-old male, who is currently not in any distress. VITAL SIGNS: Blood pressure 136/88. Pulse 130 per minute, on arrival it was 160. Respiratory rate 20 per minute, saturating 96% on room air, temperature 97.8 degrees Fahrenheit. NECK: Supple. There is elevated JVD. HEENT: Eyes; extraocular muscles are intact. Pupils are reacting to light. Oral cavity, mucous membranes are dry. No exudates or congestion. CARDIOVASCULAR: S1 and S2 heard, irregular rhythm. No murmur. RESPIRATORY: Air entry 1+ bilateral. Scattered rales in the infrascapular area. ABDOMEN: Soft. Bowel sounds heard. No tenderness, rigidity, or guarding. Has scrotal edema. EXTREMITIES: There is massive peripheral edema, more than 2+. No calf tenderness. VASCULAR: Peripheral pulses 1+ bilateral. No ischemic ulcerations or gangrene. CENTRAL NERVOUS SYSTEM: No gross focal deficits noted. The patient is alert, awake, and oriented. He is a bit hard of hearing. PSYCHIATRIC: No hallucinations or delusions. DIAGNOSTIC STUDIES: EKG done shows atrial fibrillation with RVR at 155 beats per minute. There is Q-wave seen in Hemoglobin and hematocrit are 15 and 45, platelet count 132, MCV is 98, with 64% neutrophils. BUN 30, creatinine 1.5, serum bicarb 24. Liver enzymes are within normal limits, total bilirubin is 1.4. BNP 998. Albumin is 3.7. Chest x-ray done shows cardiomegaly with pulmonary vascular congestion. CLINICAL IMPRESSION AND PLAN: The patient will be admitted to telemetry for atrial fibrillation with RVR and acute on chronic congestive heart failure exacerbation with diastolic dysfunction with massive lower edema and scrotal edema. He will be gently diuresed with Lasix 40 mg IV at 6 a.m. and 2 p.m. He is currently on Cardizem drip at 5 mg/hour and we will continue the same. We will also place him on aspirin and low-dose carvedilol. We will continue his Proscar and Flomax. The patient has prior history of bleeding per rectum when he takes anticoagulants. He has declined a pacemaker and Watchman device in the past. The patient also does not want to be resuscitated. We will consult Dr. Bhagat, his chronometer assembler, during his stay here. We will continue to closely monitor him on telemetry. I have given complete updates to the patient and his son at bedside. Job ID: [id number] MTDD
[2020-03-28] MEDS ORDERED: Prevnar 13-Val Conj/PF 0.5 ML SYRINGE IM ONE (09:00)
[2020-03-28] MEDS: Famotidine 20 MG TAB PO SCH ×2 (09:29→20:22)
[2020-03-28] MEDS: Carvedilol 3.125 MG TAB PO SCH ×2 (09:29→20:23)
[2020-03-28] MEDS: Aspirin Chewable 81 MG TAB PO SCH (09:29)
[2020-03-28] MEDS: Enoxaparin Sodium 30 MG/0.3 ML SYRINGE SC SCH (11:29)
--- NOTE | 2020-03-28 11:57 | PDOC.HOSPP ---
- Subjective Encounter Date: 03/28/20 Encounter Time: 10:45 Subjective: no sob or chest pain edema is receding son at bedside - Objective Vital Signs & Weight: Vital Signs (12 hours) Temp Pulse Resp BP Pulse Ox 03/28/20 11:31 97.4 F L 109 H 14 123/69 92 L 03/28/20 07:22 97.6 F 96 14 120/92 H 93 L 03/28/20 04:42 98.1 F 111 H 18 111/76 03/28/20 01:00 114 H 18 102/64 Weight Weight 225 lb I&O: 03/27/20 03/28/20 03/29/20 06:59 06:59 06:59 Intake Total 539 Output Total 1950 Balance -1411 Result Diagrams: 03/28/20 03:57 03/28/20 03:57 Hospitalist ROS - Medication Medications: Active Medications Generic Name Dose Route Start Last Admin Trade Name Freq PRN Reason Stop Dose Admin Aspirin 81 mg 03/28/20 09:00 03/28/20 09:29 Aspirin Chewable PO 81 mg DAILY KATHY Administration Carvedilol 3.125 mg 03/27/20 21:00 03/28/20 09:29 Coreg PO 3.125 mg BID KATHY Administration Enoxaparin Sodium 30 mg 03/28/20 09:00 03/28/20 11:29 Lovenox SC 30 mg 0900 KATHY Administration Famotidine 20 mg 03/27/20 21:00 03/28/20 09:29 Pepcid PO 20 mg BID KATHY Administration Finasteride 5 mg 03/27/20 21:00 03/27/20 21:21 Proscar PO 5 mg HS KATHY Administration Furosemide 40 mg 03/28/20 06:00 03/28/20 06:08 Lasix SLOW IVP 40 mg 0600,1400 KATHY Administration Diltiazem HCl 125 mg/ Sodium 125 mls @ 5 mls/hr 03/27/20 18:45 03/28/20 06:07 Chloride IVPB 125 mls INF KATHY Administration Protocol 5 MG/HR Sodium Chloride 10 ml 03/27/20 21:00 03/28/20 09:30 Flush - Normal Saline IVF 10 ml Q12HR KATHY Administration Sodium Chloride 10 ml 03/27/20 19:05 03/28/20 06:09 Flush - Normal Saline IVF 10 ml PRN PRN Administration Saline Flush Tamsulosin HCl 0.4 mg 03/27/20 21:00 03/27/20 21:21 Flomax PO 0.4 mg HS KATHY Administration - Exam General Appearance: awake alert Eye: PERRL, anicteric sclera ENT: no oropharyngeal lesions, moist mucosa Neck: supple, no JVD Heart: no murmur, irregular Respiratory: no wheezes, rales Gastrointestinal: soft, non-tender, non-distended, normal bowel sounds Extremities: no cyanosis, 1+ LE edema Neurological: cranial nerve grossly intact, no focal deficits Psychiatric: normal affect, A&O x 3 Hosp A/P (1) Atrial fibrillation with RVR Code(s): I48.91 - UNSPECIFIED ATRIAL FIBRILLATION Status: Acute (2) Acute exacerbation of CHF (congestive heart failure) Code(s): I50.9 - HEART FAILURE, UNSPECIFIED Status: Acute Qualifiers: Heart failure type: diastolic Qualified Code(s): I50.33 - Acute on chronic diastolic (congestive) heart failure (3) HTN (hypertension) Code(s): I10 - ESSENTIAL (PRIMARY) HYPERTENSION Status: Chronic Qualifiers: Hypertension type: essential hypertension Qualified Code(s): I10 - Essential (primary) hypertension (4) FLOR (acute kidney injury) Code(s): N17.9 - ACUTE KIDNEY FAILURE, UNSPECIFIED Status: Resolved (5) BPH (benign prostatic hyperplasia) Code(s): N40.0 - BENIGN PROSTATIC HYPERPLASIA WITHOUT LOWER URINRY TRACT SYMP Status: Chronic Qualifiers: Lower urinary tract symptom presence: symptoms absent Qualified Code(s): N40.0 - Benign prostatic hyperplasia without lower urinary tract symptoms - Plan is on cardizem drip gentle diuresis tenzin hose to LE, edema is receding well including scrotal edema hemostable continue current meds cardiology consultation d/w patient and son at bedside
--- NOTE | 2020-03-28 16:22 | CON ---
DATE OF CONSULTATION: CONSULTING DOCTOR: Dr. Meek. HISTORY OF PRESENT ILLNESS: The patient is a 79-year-old gentleman, presents for evaluation of a rapid irregular heart rate. The patient has a long history of atrial fibrillation. He was in the hospital earlier this year with paroxysmal atrial fibrillation. He was at that time converted to sinus rhythm. He was placed on Eliquis. The patient reports that he subsequently developed dark stool. He stopped taking Eliquis and switched back to aspirin. The bleeding subsequently resolved. The patient presented to the emergency room for evaluation. He denied having any chest discomfort or palpitations. He did notice having increasing lower extremity swelling. The patient denied to have any chest discomfort. PAST MEDICAL HISTORY: 1. Paroxysmal atrial fibrillation. 2. Congestive heart failure. 3. Hypertension. 4. BPH. PAST SURGICAL HISTORY: Hernia repair and tonsillectomy. ALLERGIES: PENICILLIN, MILK, AND SULFA. MEDICATIONS: 1. K-Chlor 20 daily. 2. Lasix 20 daily. 3. Terazosin 5 daily. 4. Metoprolol 25 b.i.d. 5. Proscar 5 daily. 6. Flomax 0.4 daily. FAMILY HISTORY: Positive family history of coronary artery disease. REVIEW OF SYSTEMS: Ten-point system otherwise known for no further dark red blood per rectum or dark stool or bright red blood per rectum, 10-point system unremarkable. PHYSICAL EXAMINATION: GENERAL: A well-developed gentleman, in no acute distress. VITAL SIGNS: Blood pressure 120/92. NECK: No jugular venous distention. LUNGS: Clear to auscultation. HEART: Irregular rate and rhythm. Normal S1 and S2. ABDOMEN: Nondistended. EXTREMITIES: Showed severe bilateral edema. LABORATORY RESULTS: Sodium 140, potassium 4.3, chloride 109, bicarbonate 19, BUN 26, and creatinine 1.2. BNP was 998. White blood cell count is 5.6, hemoglobin 13.7, hematocrit 43.3, and his platelets are 122. EKG atrial fibrillation with a rapid ventricular response. IMPRESSION: 1. Atrial fibrillation. 2. Congestive heart failure. 3. Hypertension. This gentleman presents with rapid atrial fibrillation. He underwent a complete cardiac evaluation a few months ago, which revealed normal left ventricular systolic function and no evidence of ischemia. From a cardiac standpoint, if he cannot be anticoagulated due to gastrointestinal hemorrhage, the patient may benefit from a Watchman device. We will obtain an EP consultation. We will follow this patient with you through his hospitalization. Job ID: [id number] MTDD
[2020-03-28] MEDS: Finasteride 5 MG TAB PO SCH (20:23)
[2020-03-28] MEDS: Tamsulosin HCl 0.4 MG CAP PO SCH (20:23)
[2020-03-29 04:25] LABS: Anion Gap 15 mmol/L (10-20); BUN (Urea Nitrogen) 21 mg/dL (8.4-25.7); Calc. Creatinine Clearance 65 mL/min (70-130); Carbon Dioxide 24 mmol/L (23-31); Chloride 102 mmol/L (98-107); Estimated GFR-MDRD 51; Glucose 90 mg/dL (83-110); Potassium 4.8 mmol/L (3.5-5.1); Sodium 136 mmol/L (136-145)
[2020-03-29] MEDS: Furosemide 40 MG/4 ML VIAL SLOW IVP SCH ×2 (05:54→15:03)
[2020-03-29] MEDS ORDERED: Digoxin 0.5 MG/2 ML AMP SLOW IVP SCH ×2 (08:15→17:45)
[2020-03-29] MEDS: Diltiazem 125 MG in Sodium Chloride 0.9% 100 ML IVPB SCH ×2 (08:32→20:31)
[2020-03-29] MEDS: Famotidine 20 MG TAB PO SCH ×2 (08:34→20:31)
[2020-03-29] MEDS: Enoxaparin Sodium 30 MG/0.3 ML SYRINGE SC SCH (08:34)
[2020-03-29] MEDS: Aspirin Chewable 81 MG TAB PO SCH (08:35)
[2020-03-29] MEDS: Carvedilol 3.125 MG TAB PO SCH ×2 (08:35→20:31)
--- NOTE | 2020-03-29 08:57 | CON ---
DATE OF CONSULTATION: 03/28/2020 ADDITIONAL REFERRING PHYSICIAN: Dr. Jocelyne Bhagat, usual radiation therapist. PROBLEMS: 1. Paroxysmal atrial fibrillation with rapid ventricular rate. a. Recurrent episodes of atrial fibrillation since 2016 and current admission with atrial fibrillation with rapid rate. 2. Sinus node dysfunction with tendency for bradycardia. 3. Acute on chronic diastolic heart failure exacerbation. a. A 2D echo from 11/05/2019 showed LVEF 65%, moderate to severe left atrial enlargement of 5 cm, mild to moderate MR, mild TR. b. Nuclear stress test from 10/26/2019 reveals LVEF of 60%. No ischemia or scar. 4. History of non-ST elevation myocardial infarction type 2 with RVR in the past. 5. CHADS score of 2 due to age, treated with Eliquis. a. GI bleed related to discontinuation of Eliquis in the past. 6. History of varicose veins. ALLERGIES: PENICILLIN, SULFA MEDICATION, AND MILK. MEDICATIONS: At home included; 1. Metoprolol tartrate 25 mg twice a day. 2. Vitamin C. 3. Furosemide 20 mg tablet. 4. Potassium chloride. 5. Tamsulosin. 6. Finasteride. 7. Terazosin. SUBJECTIVE: Mr. Mckenzie is here with progressive dyspnea, lower extremity edema, scrotal edema, also chronic palpitations. He is noted to be in fluid overload on chest x-ray on admission as well as in his physical exam. He also is in atrial fibrillation with rapid ventricular rate, was admitted for diuresis and rate control. Diltiazem is initiated and he seems to be doing somewhat better with instituted therapy. Dr. Lion was consulted, who in turn consulted me for further arrhythmia management. Currently, denies angina. No fever, chills, or cough. No stroke-like symptoms or chest discomfort. No further GI bleed, on aspirin alone. Rest of 12-point system otherwise remarkable. PAST MEDICAL HISTORY: As above. SOCIAL HISTORY: , with children. Denies smoking, EtOH, or drug abuse. FAMILY HISTORY: Noncontributory. PHYSICAL EXAMINATION: VITAL SIGNS: Blood pressure is 122/85, heart rate 97, respiratory rate is 14, temperature is 98.5 degrees Fahrenheit. GENERAL: Alert and oriented man, in no apparent distress. NECK: Supple. Jugular veins distended. CHEST: Coarse with few crackles. HEART: Sounds are irregularly irregular. S1 and S2 variable. No murmur or gallop. ABDOMEN: Benign. Bowel sounds are positive. : Also scrotal edema is noted. EXTREMITIES: Lower extremity without cyanosis. There is 3+ lower extremity edema. LABORATORY DATA: White cell count is 5.6, hemoglobin 13.7, and platelet count is 122. Sodium 140, potassium 4.3, BUN is 26, and creatinine 1.24. BNP is 998. Troponin I is 0.02. Chest x-ray shows congestion. EKG is reviewed, revealing atrial fibrillation with rate of 155 with narrow QRS is noted. ASSESSMENT/PLAN: 1. Mr. Mckenzie is a pleasant 79-year-old man with history of recurrent atrial fibrillation possibly up to 4 years. He has atrial fibrillation episodes as well as episode of bradycardia at times on his prior monitor. He has had issues with anticoagulation, previously administered full-dose Eliquis which was stopped due to gastrointestinal / rectal bleed. 2. I have seen this gentleman back in the office in November, at which point we discussed potential benefit from pacing with antiarrhythmic therapy for suppression of the arrhythmia, consideration for Watchman device placement and possibly ablation procedure in the future once he can clearly take anticoagulants possibly after GI workup. Unfortunately, due to the COVID epidemic, his plans were delayed and now he is back here with atrial fibrillation, RVR with rapid rates and likely related diastolic heart failure exacerbation. I have discussed these potential options with him. My plan would be: 1. He will need further rate control with continued diltiazem and added digoxin. 2. Could consider for a SUELLEN-guided cardioversion with additional antiarrhythmic agent, albeit he would benefit from anticoagulant started as well. Possibly lower dose Eliquis could be considered and proceeding with Watchman device placement as an outpatient could be made. 3. If bradycardia occurs, he may benefit from pacemaker therapy. 4. We will follow with you. discussed with Dr Lion Job ID: [id number] [facility]
--- NOTE | 2020-03-29 09:49 | PDOC.EP ---
- Subjective Date: 03/29/20 Time: 09:48 - Review of Systems Constitutional: denies: chills, fever, malaise, sweats, other Respiratory: reports: shortness of breath (improving). denies: cough, dry, hemoptysis, pleuritic pain, SOB with excertion, sputum, wheezing, other Cardiology: reports: swelling (imptoving LE and scrotal edema). denies: chest pain, edema, heart racing, light headedness, orthopnea, paroxysmal noc. dyspnea , palpitations, passing out, pleuritic pain, pressure, other Gastrointestinal: denies: abdominal pain, constipation, diarrhea, hematochezia, melena, nausea, vomitting, other Musculoskeletal: denies: unstable gait, falls, neck pain, shoulder pain, arm pain, hand pain, leg pain, foot pain, other Neurological: denies: headache, vision changes, other - Objective Allergies/Adverse Reactions: Allergies Allergy/AdvReac Type Severity Reaction Status Date / Time Penicillins Allergy Verified 03/27/20 22:09 Sulfa (Sulfonamide Allergy Verified 03/27/20 22:09 Antibiotics) milk AdvReac stops nose Verified 03/27/20 22:10 up, thick secretions Current Medications Acetaminophen (Tylenol) 650 mg PO Q4H PRN PRN Reason: Headache/Fever/Mild Pain (1-3) Aspirin (Aspirin Chewable) 81 mg PO DAILY [facility] Last Admin: 03/29/20 08:35 Dose: 81 mg Bisacodyl (Dulcolax) 10 mg [place] DAILYPRN PRN PRN Reason: Constipation Calcium Carbonate (Tums) 1,000 mg PO Q4H PRN PRN Reason: Heartburn or Indigestion Carvedilol (Coreg) 3.125 mg PO BID [facility] Last Admin: 03/29/20 08:35 Dose: 3.125 mg Digoxin (Lanoxin) 0.25 mg SLOW IVP NOW [facility] Stop: 03/29/20 10:00 Last Admin: 03/29/20 08:35 Dose: 0.25 mg Enoxaparin Sodium (Lovenox) 30 mg SC 0900 [facility] Last Admin: 03/29/20 08:34 Dose: 30 mg Famotidine (Pepcid) 20 mg PO BID [facility] Last Admin: 03/29/20 08:34 Dose: 20 mg Finasteride (Proscar) [address] [facility] Last Admin: 03/28/20 20:23 Dose: 5 mg Furosemide (Lasix) 40 mg SLOW IVP 0600,1400 [facility] Last Admin: 03/29/20 05:54 Dose: 40 mg Guaifenesin/Dextromethorphan (Robitussin Dm) 15 ml PO Q4H PRN PRN Reason: Cough Diltiazem HCl 125 mg/ Sodium (Chloride) 125 mls @ 12.5 mls/hr IVPB INF [facility]; Protocol Last Admin: 03/29/20 08:32 Dose: 125 mls Ondansetron HCl (Zofran) 4 mg IVP Q6H PRN PRN Reason: Nausea/Vomiting Senna/Docusate Sodium (Senokot S) 2 tab PO BID PRN PRN Reason: Constipation Sodium Chloride (Flush - Normal Saline) 10 ml IVF Q12HR [facility] Last Admin: 03/29/20 08:36 Dose: 10 ml Sodium Chloride (Flush - Normal Saline) 10 ml IVF PRN PRN PRN Reason: Saline Flush Last Admin: 03/28/20 06:09 Dose: 10 ml Tamsulosin HCl (Flomax) 0.[address] [facility] Last Admin: 03/28/20 20:23 Dose: 0.4 mg Vital Signs & Weight: Vital Signs Temp Pulse Resp BP Pulse Ox 03/29/20 08:35 102 H 03/29/20 03:18 97.4 F L 102 H 18 120/75 92 L Weight 218 lb 3 oz I/O: I/O 03/28/20 03/29/20 03/30/20 06:59 06:59 06:59 Intake Total 539 1605 Output Total 7709 3450 Balance -3338 -9624 - Physical Exam General: alert & oriented x3, appears well, no apparent distress, speech clear, affect appropriate HEENT: mucus membranes moist Neck: supple neck, JVD/HJR Cardiology: irregularly irregular, tachycardia. negative: regular rate and rhythm Lungs: clear to auscultation, no wheezes, no rales Neurology: grossly intact Abdomen: unremarkable, active bowel sounds. negative: HJR negative Extremities: + edema B (Improving scrotal and bilateral LE edema.) Musculoskeletal: no pain - Chadsvasc Risk factors Congestive heart failure: 1 Hypertension: 1 Age >75: 2 Risk Score: 4 - Labs Result Diagrams: 03/28/20 03:57 03/29/20 03:25 - EKG Interpretation EKG shows: Atrial fibrillation (Still with RVR) - Problem (1) Acute exacerbation of CHF (congestive heart failure) Code(s): I50.9 - HEART FAILURE, UNSPECIFIED Qualifiers: Heart failure type: diastolic Qualified Code(s): I50.33 - Acute on chronic diastolic (congestive) heart failure (2) Atrial fibrillation with RVR Code(s): I48.91 - UNSPECIFIED ATRIAL FIBRILLATION (3) HTN (hypertension) Code(s): I10 - ESSENTIAL (PRIMARY) HYPERTENSION Qualifiers: Hypertension type: essential hypertension Qualified Code(s): I10 - Essential (primary) hypertension - Assessment/Plan Assessment/Plan: 1. Mr. Mckenzie is a pleasant 79-year-old man with history of recurrent atrial fibrillation possibly up to 4 years. He has atrial fibrillation episodes as well as episode of bradycardia at times on his prior monitor. He has had issues with anticoagulation, previously administered full-dose Eliquis which was stopped due to gastrointestinal / rectal bleed. 2. I have seen this gentleman back in the office in November, at which point we discussed potential benefit from pacing with antiarrhythmic therapy for suppression of the arrhythmia, consideration for Watchman device placement and possibly ablation procedure in the future once he can clearly take anticoagulants possibly after GI workup. Unfortunately, due to the COVID epidemic, his plans were delayed and now he is back here with atrial fibrillation, RVR with rapid rates and likely related diastolic heart failure exacerbation. PROBLEMS: 1. Paroxysmal atrial fibrillation with rapid ventricular rate. a. Recurrent episodes of atrial fibrillation since 2016 and current admission with atrial fibrillation with rapid rate. 2. Sinus node dysfunction with tendency for bradycardia. 3. Acute on chronic diastolic heart failure exacerbation. a. A 2D echo from 11/05/2019 showed LVEF 65%, moderate to severe left atrial enlargement of 5 cm, mild to moderate MR, mild TR. b. Nuclear stress test from 10/26/2019 reveals LVEF of 60%. No ischemia or scar. 4. History of non-ST elevation myocardial infarction type 2 with RVR in the past. 5. CHADS score of 2 due to age, treated with Eliquis. a. GI bleed related to discontinuation of Eliquis in the past. 6. History of varicose veins. My plan would be: 1. He will need further rate control with continued diltiazem and added digoxin. 2. Could consider for a SUELLEN-guided cardioversion with additional antiarrhythmic agent, albeit he would benefit from anticoagulant started as well. Possibly lower dose Eliquis could be considered and proceeding with Watchman device placement as an outpatient could be made. 3. If bradycardia occurs, he may benefit from pacemaker therapy. 03/29/20: Improved diuresis but still afib RBVR with IV dilt @ 12.5mg/h. Added Digoxin IV->PO. Monitor hence borlderline renal Fx. Add Low dose Eliquis and monitor for bleed. Consider SUELLEN/CV next week after adequately diurised.
[2020-03-29] MEDS: Apixaban 2.5 MG TAB PO SCH ×2 (11:08→20:32)
[2020-03-29 11:23] LABS: Hemoglobin 15.1 g/dL (14.0-18.0); Platelet Count 116 thou/uL (130-400)
--- NOTE | 2020-03-29 11:39 | PDOC.HOSPP ---
- Subjective Encounter Date: 03/29/20 Encounter Time: 10:30 Subjective: sob is better, no c/o palp or chest pain - Objective Vital Signs & Weight: Vital Signs (12 hours) Temp Pulse Resp BP Pulse Ox 03/29/20 08:35 102 H 03/29/20 07:45 97.3 F L 118 H 14 106/68 94 L 03/29/20 03:18 97.4 F L 102 H 18 120/75 92 L Weight Weight 218 lb 3 oz I&O: 03/28/20 03/29/20 03/30/20 06:59 06:59 06:59 Intake Total 539 1605 Output Total 4243 2149 Balance -4612 -1103 Result Diagrams: 03/29/20 10:59 03/29/20 03:25 Hospitalist ROS - Medication Medications: Active Medications Generic Name Dose Route Start Last Admin Trade Name Freq PRN Reason Stop Dose Admin Apixaban 2.5 mg 03/29/20 09:00 03/29/20 11:08 Eliquis PO 2.5 mg BID [facility] Administration Aspirin 81 mg 03/28/20 09:00 03/29/20 08:35 Aspirin Chewable PO 81 mg DAILY [facility] Administration Carvedilol 3.125 mg 03/27/20 21:00 03/29/20 08:35 Coreg PO 3.125 mg BID [facility] Administration Famotidine 20 mg 03/27/20 21:00 03/29/20 08:34 Pepcid PO 20 mg BID [facility] Administration Finasteride 5 mg 03/27/20 21:00 03/28/20 20:23 Proscar PO 5 mg HS [facility] Administration Furosemide 40 mg 03/28/20 06:00 03/29/20 05:54 Lasix SLOW IVP 40 mg 0600,1400 [facility] Administration Diltiazem HCl 125 mg/ Sodium 125 mls @ 12.5 mls/hr 03/27/20 18:45 03/29/20 08 :32 Chloride IVPB 125 mls INF [facility] Administration Protocol Sodium Chloride 10 ml 03/27/20 21:00 03/29/20 08:36 Flush - Normal Saline IVF 10 ml Q12HR [facility] Administration Sodium Chloride 10 ml 03/27/20 19:05 03/28/20 06:09 Flush - Normal Saline IVF 10 ml PRN PRN Administration Saline Flush Tamsulosin HCl 0.4 mg 03/27/20 21:00 03/28/20 20:23 Flomax PO 0.4 mg HS [facility] Administration - Exam General Appearance: awake alert Eye: PERRL, anicteric sclera ENT: no oropharyngeal lesions, moist mucosa Neck: symmetric, no JVD Heart: no murmur, irregular Respiratory: no wheezes, no rales Gastrointestinal: soft, non-tender, non-distended, normal bowel sounds Extremities: no cyanosis, 1+ LE edema Neurological: cranial nerve grossly intact, no focal deficits Psychiatric: normal affect, A&O x 3 Hosp A/P (1) Atrial fibrillation with RVR Code(s): I48.91 - UNSPECIFIED ATRIAL FIBRILLATION Status: Acute (2) Acute exacerbation of CHF (congestive heart failure) Code(s): I50.9 - HEART FAILURE, UNSPECIFIED Status: Acute Qualifiers: Heart failure type: diastolic Qualified Code(s): I50.33 - Acute on chronic diastolic (congestive) heart failure (3) HTN (hypertension) Code(s): I10 - ESSENTIAL (PRIMARY) HYPERTENSION Status: Chronic Qualifiers: Hypertension type: essential hypertension Qualified Code(s): I10 - Essential (primary) hypertension (4) FLOR (acute kidney injury) Code(s): N17.9 - ACUTE KIDNEY FAILURE, UNSPECIFIED Status: Resolved (5) BPH (benign prostatic hyperplasia) Code(s): N40.0 - BENIGN PROSTATIC HYPERPLASIA WITHOUT LOWER URINRY TRACT SYMP Status: Chronic Qualifiers: Lower urinary tract symptom presence: symptoms absent Qualified Code(s): N40.0 - Benign prostatic hyperplasia without lower urinary tract symptoms - Plan is on cardizem drip, rate is increased to 12.5mg/hr, digitalized and on oral now gentle diuresis tenzin hose to LE, edema is receding well including scrotal edema hemostable continue current meds for possible SUELLEN and cardioversion on Wednesday d/w patient at bedside
[2020-03-29] MEDS: Tamsulosin HCl 0.4 MG CAP PO SCH (20:31)
[2020-03-29] MEDS: Finasteride 5 MG TAB PO SCH (20:31)
[2020-03-30 05:21] LABS: #Eosinphils 0.2 thou/uL (0.0-0.7); #Monocytes 0.8 thou/uL (0.11-0.59); #Neutrophils 5.5 thou/uL (1.40-6.50); %Basophils 0.6 % (0.0-1.0); %Lymphocytes 13.3 % (21.0-51.0); %Monocytes 10.2 % (0.0-10.0); %Neutrophils 72.9 % (42.0-75.0); Hemoglobin 15.4 g/dL (14.0-18.0); Mean Corpuscular HGB CONC 31.6 g/dL (32.0-36.0); Mean Corpuscular Hemoglobin 31.1 pg (27.0-31.0); Mean Corpuscular Volume 98.4 fL (78.0-98.0); Mean Platelet Volume 9.4 fL (7.4-10.4); Platelet Count 120 thou/uL (130-400); RBC Distribution Width 14.4 % (11.5-14.5); Red Blood Cell (RBC) Count 4.95 mill/uL (4.70-6.10); White Blood Cell (WBC) Count 7.5 thou/uL (4.8-10.8)
[2020-03-30 05:43] LABS: Anion Gap 14 mmol/L (10-20); BUN (Urea Nitrogen) 15 mg/dL (8.4-25.7); Calc. Creatinine Clearance 78 mL/min (70-130); Calcium 8.2 mg/dL (7.8-10.44); Carbon Dioxide 29 mmol/L (23-31); Chloride 100 mmol/L (98-107); Estimated GFR-MDRD 65; Glucose 105 mg/dL (83-110); Magnesium 2.3 mg/dL (1.6-2.6); Potassium 3.4 mmol/L (3.5-5.1); Sodium 140 mmol/L (136-145)
[2020-03-30] MEDS: Furosemide 40 MG/4 ML VIAL SLOW IVP SCH ×2 (06:38→14:40)
[2020-03-30] MEDS ORDERED: Potassium Chloride 20 MEQ TAB PO SCH (08:15)
[2020-03-30] MEDS: Carvedilol 3.125 MG TAB PO SCH (08:56)
[2020-03-30] MEDS: Aspirin Chewable 81 MG TAB PO SCH (08:56)
[2020-03-30] MEDS: Digoxin 0.125 MG TAB PO SCH (08:56)
[2020-03-30] MEDS: Apixaban 2.5 MG TAB PO SCH ×2 (08:57→20:41)
[2020-03-30] MEDS: Famotidine 20 MG TAB PO SCH ×2 (08:57→20:41)
[2020-03-30] MEDS ORDERED: Metoprolol Tartrate 25 MG TAB PO SCH ×2 (10:00)
--- NOTE | 2020-03-30 10:12 | PDOC.CPN ---
- Subjective Date: 03/30/20 Time: 10:10 - Review of Systems General: denies: fever/chills, weight/appetite/sleep changes, night sweats, fatigue Respiratory: denies: cough, congestion, shortness of breath, exercise intolerance Cardiovascular: denies: chest pain, palpitation, edema, paroxysmal nocturnal dyspnea, orthopnea Gastrointestinal: denies: nausea, vomiting, diarrhea, constipation, abd pain, GI bleeding Musculoskeletal: denies: pain, tenderness, stiffness, swelling, arthritis/ arthralgias Neurological: denies: numbness, syncope, seizure, weakness - Objective Allergies/Adverse Reactions: Allergies Allergy/AdvReac Type Severity Reaction Status Date / Time Penicillins Allergy Verified 03/27/20 22:09 Sulfa (Sulfonamide Allergy Verified 03/27/20 22:09 Antibiotics) milk AdvReac stops nose Verified 03/27/20 22:10 up, thick secretions Visit Medications: Current Medications Acetaminophen (Tylenol) 650 mg PO Q4H PRN PRN Reason: Headache/Fever/Mild Pain (1-3) Apixaban (Eliquis) 2.5 mg PO BID [facility] Last Admin: 03/30/20 08:57 Dose: 2.5 mg Aspirin (Aspirin Chewable) 81 mg PO DAILY [facility] Last Admin: 03/30/20 08:56 Dose: 81 mg Bisacodyl (Dulcolax) 10 mg [place] DAILYPRN PRN PRN Reason: Constipation Calcium Carbonate (Tums) 1,000 mg PO Q4H PRN PRN Reason: Heartburn or Indigestion Carvedilol (Coreg) 3.125 mg PO BID [facility] Last Admin: 03/30/20 08:56 Dose: 3.125 mg Digoxin (Lanoxin) 0.125 mg PO DAILY [facility] Last Admin: 03/30/20 08:56 Dose: 0.125 mg Famotidine (Pepcid) 20 mg PO BID [facility] Last Admin: 03/30/20 08:57 Dose: 20 mg Finasteride (Proscar) 5 mg PO HS [facility] Last Admin: 03/29/20 20:31 Dose: 5 mg Furosemide (Lasix) 40 mg SLOW IVP 0600,1400 [facility] Last Admin: 03/30/20 06:38 Dose: 40 mg Guaifenesin/Dextromethorphan (Robitussin Dm) 15 ml PO Q4H PRN PRN Reason: Cough Diltiazem HCl 125 mg/ Sodium (Chloride) 125 mls @ 12.5 mls/hr IVPB INF [facility]; Protocol Last Admin: 03/29/20 20:31 Dose: 125 mls Metoprolol Tartrate (Lopressor) 25 mg PO BID [facility] Metoprolol Tartrate (Lopressor) 25 mg PO NOW [facility] Stop: 03/30/20 12:00 Ondansetron HCl (Zofran) 4 mg IVP Q6H PRN PRN Reason: Nausea/Vomiting Potassium Chloride (K-Dur) 40 meq PO NOW [facility] Stop: 03/30/20 11:00 Last Admin: 03/30/20 09:00 Dose: 40 meq Potassium Chloride (K-Dur) 40 meq PO QAM-WM [facility] Senna/Docusate Sodium (Senokot S) 2 tab PO BID PRN PRN Reason: Constipation Sodium Chloride (Flush - Normal Saline) 10 ml IVF Q12HR [facility] Last Admin: 03/30/20 09:05 Dose: Not Given Sodium Chloride (Flush - Normal Saline) 10 ml IVF PRN PRN PRN Reason: Saline Flush Last Admin: 03/28/20 06:09 Dose: 10 ml Tamsulosin HCl (Flomax) 0.4 mg PO HS [facility] Last Admin: 03/29/20 20:31 Dose: 0.4 mg Vital Signs & Weight: Vital Signs Temp Pulse Resp BP Pulse Ox 03/30/20 08:56 103 H 03/30/20 07:36 98.7 F 103 H 14 142/96 H 92 L 03/30/20 03:47 98.0 F 94 23 H 125/78 96 Weight 7.489 oz - Physical Exam General: appears well HEENT: mucus membranes moist Neck: supple neck Cardiac: other (IRR, rapid) Lungs: normal breath sounds Neuro: grossly intact Abdomen: soft, non-tender Extremities: other: (Mild bilateral SOY) Skin: clear Musculoskeletal: no pain - Labs Result Diagrams: 03/30/20 04:43 03/31/20 05:50 Troponin/CKMB Troponin I 0.020 ng/mL (< 0.028) 03/27/20 15:05 - Assessment/Plan Assessment/Plan: 1. AF with RVR 2. Acute on chronic diastolic CHF 3. Hx GIB on Eliquis Patient still on cardizem gtt and now loaded with Digoxin. Still RVR 120- 140bpm. Asymptomatic. Improved CHF. Continue current meds. Will add metoprolol for improved rate control. Consider adding Amio in prep for possible SUELLEN/CV Wednesday. Will discuss with RG. ARUN 03/30/2020 Pt seen and examined Agree with the above Keep NPO after MD on wednesday for SUELLEN/CV Agree with amiodarone IV
--- NOTE | 2020-03-30 11:27 | PDOC.HOSPP ---
- Subjective Encounter Date: 03/30/20 Encounter Time: 10:15 Subjective: no sob or palp daughter at bedside is amb in room - Objective Vital Signs & Weight: Vital Signs (12 hours) Temp Pulse Resp BP Pulse Ox 03/30/20 11:12 98.3 F 121 H 16 116/89 94 L 03/30/20 08:56 103 H 03/30/20 07:36 98.7 F 103 H 14 142/96 H 103 H 03/30/20 03:47 98.0 F 94 23 H 125/78 96 Weight Weight 7.489 oz I&O: 03/29/20 03/30/20 03/31/20 06:59 06:59 06:59 Intake Total 1605 8635 Output Total 6461 3320 Balance -2606 -2782 Result Diagrams: 03/30/20 04:43 03/30/20 04:43 Hospitalist ROS - Medication Medications: Active Medications Generic Name Dose Route Start Last Admin Trade Name Freq PRN Reason Stop Dose Admin Apixaban 2.5 mg 03/29/20 09:00 03/30/20 08:57 Eliquis PO 2.5 mg BID [facility] Administration Aspirin 81 mg 03/28/20 09:00 03/30/20 08:56 Aspirin Chewable PO 81 mg DAILY [facility] Administration Digoxin 0.125 mg 03/30/20 09:00 03/30/20 08:56 Lanoxin PO 0.125 mg DAILY [facility] Administration Famotidine 20 mg 03/27/20 21:00 03/30/20 08:57 Pepcid PO 20 mg BID [facility] Administration Finasteride 5 mg 03/27/20 21:00 03/29/20 20:31 Proscar PO 5 mg HS [facility] Administration Furosemide 40 mg 03/28/20 06:00 03/30/20 06:38 Lasix SLOW IVP 40 mg 0600,1400 [facility] Administration Diltiazem HCl 125 mg/ Sodium 125 mls @ 12.5 mls/hr 03/27/20 18:45 03/29/20 20 :31 Chloride IVPB 125 mls INF [facility] Administration Protocol Metoprolol Tartrate 25 mg 03/30/20 10:00 03/30/20 11:01 Lopressor PO 03/30/20 12:00 25 mg NOW [facility]Y Administration Sodium Chloride 10 ml 03/27/20 21:00 03/30/20 09:05 Flush - Normal Saline IVF Not Given Q12HR [facility]Y Sodium Chloride 10 ml 03/27/20 19:05 03/28/20 06:09 Flush - Normal Saline IVF 10 ml PRN PRN Administration Saline Flush Tamsulosin HCl 0.4 mg 03/27/20 21:00 03/29/20 20:31 Flomax PO 0.4 mg HS [facility] Administration - Exam General Appearance: awake alert Eye: PERRL, anicteric sclera ENT: no oropharyngeal lesions, moist mucosa Neck: supple, no JVD Heart: no murmur, irregular Respiratory: no wheezes, no rales Gastrointestinal: soft, non-tender, non-distended, normal bowel sounds Extremities: no cyanosis, 1+ LE edema Neurological: cranial nerve grossly intact, no focal deficits Psychiatric: normal affect, A&O x 3 Hosp A/P (1) Atrial fibrillation with RVR Code(s): I48.91 - UNSPECIFIED ATRIAL FIBRILLATION Status: Acute (2) Acute exacerbation of CHF (congestive heart failure) Code(s): I50.9 - HEART FAILURE, UNSPECIFIED Status: Acute Qualifiers: Heart failure type: diastolic Qualified Code(s): I50.33 - Acute on chronic diastolic (congestive) heart failure (3) HTN (hypertension) Code(s): I10 - ESSENTIAL (PRIMARY) HYPERTENSION Status: Chronic Qualifiers: Hypertension type: essential hypertension Qualified Code(s): I10 - Essential (primary) hypertension (4) FLOR (acute kidney injury) Code(s): N17.9 - ACUTE KIDNEY FAILURE, UNSPECIFIED Status: Resolved (5) BPH (benign prostatic hyperplasia) Code(s): N40.0 - BENIGN PROSTATIC HYPERPLASIA WITHOUT LOWER URINRY TRACT SYMP Status: Chronic Qualifiers: Lower urinary tract symptom presence: symptoms absent Qualified Code(s): N40.0 - Benign prostatic hyperplasia without lower urinary tract symptoms - Plan is on cardizem drip, rate is increased to 12.5mg/hr, digitalized and on oral now , BB added this am. gentle diuresis tenzin hose to LE, edema is receding well including scrotal edema hemostable continue current meds for possible SUELLEN and cardioversion on Wednesday d/w patient and daughter at bedside
[2020-03-30] MEDS: Diltiazem 125 MG in Sodium Chloride 0.9% 100 ML IVPB SCH (13:10)
[2020-03-30] MEDS: Metoprolol Tartrate 25 MG TAB PO SCH (20:41)
[2020-03-30] MEDS: Finasteride 5 MG TAB PO SCH (20:41)
[2020-03-30] MEDS: Tamsulosin HCl 0.4 MG CAP PO SCH (20:41)
[2020-03-31] MEDS: Furosemide 40 MG/4 ML VIAL SLOW IVP SCH (04:48)
[2020-03-31 06:15] LABS: Chloride 98 mmol/L (98-107); Potassium 3.4 mmol/L (3.5-5.1); Sodium 138 mmol/L (136-145)
[2020-03-31 06:16] LABS: Calcium 8.5 mg/dL (7.8-10.44); Glucose 97 mg/dL (83-110)
[2020-03-31 06:18] LABS: Anion Gap 10 mmol/L (10-20); Carbon Dioxide 33 mmol/L (23-31)
[2020-03-31 06:19] LABS: Calc. Creatinine Clearance 70 mL/min (70-130); Estimated GFR-MDRD 62
[2020-03-31 06:20] LABS: BUN (Urea Nitrogen) 22 mg/dL (8.4-25.7)
[2020-03-31] MEDS: Diltiazem 125 MG in Sodium Chloride 0.9% 100 ML IVPB SCH ×2 (07:27→18:43)
[2020-03-31] MEDS: Potassium Chloride 20 MEQ TAB PO SCH (08:14)
[2020-03-31] MEDS: Digoxin 0.125 MG TAB PO SCH (08:45)
[2020-03-31] MEDS: Aspirin Chewable 81 MG TAB PO SCH (08:46)
[2020-03-31] MEDS: Apixaban 2.5 MG TAB PO SCH ×2 (08:46→19:44)
[2020-03-31] MEDS: Metoprolol Tartrate 25 MG TAB PO SCH (08:46)
[2020-03-31] MEDS: Famotidine 20 MG TAB PO SCH ×2 (08:46→19:44)
--- NOTE | 2020-03-31 10:29 | PDOC.HOSPP ---
- Subjective Encounter Date: 03/31/20 Encounter Time: 10:15 Subjective: no sob, is a bit confused walking around - Objective Vital Signs & Weight: Vital Signs (12 hours) Temp Pulse Resp BP Pulse Ox 03/31/20 08:45 119 H 03/31/20 07:35 97.9 F 119 H 14 118/74 94 L 03/31/20 04:43 97.6 F 97 18 115/78 95 03/30/20 23:15 116/54 L Weight Weight 206 lb 6.4 oz I&O: 03/30/20 03/31/20 04/01/20 06:59 06:59 06:59 Intake Total 1655 1930 Output Total 0134 7472 Balance -1866 -478 Result Diagrams: 03/30/20 04:43 03/31/20 05:50 Hospitalist ROS - Medication Medications: Active Medications Generic Name Dose Route Start Last Admin Trade Name Freq PRN Reason Stop Dose Admin Apixaban 2.5 mg 03/29/20 09:00 03/31/20 08:46 Eliquis PO 2.5 mg BID [facility] Administration Aspirin 81 mg 03/28/20 09:00 03/31/20 08:46 Aspirin Chewable PO 81 mg DAILY [facility] Administration Digoxin 0.125 mg 03/30/20 09:00 03/31/20 08:45 Lanoxin PO 0.125 mg DAILY [facility] Administration Famotidine 20 mg 03/27/20 21:00 03/31/20 08:46 Pepcid PO 20 mg BID [facility] Administration Finasteride 5 mg 03/27/20 21:00 03/30/20 20:41 Proscar PO 5 mg HS [facility] Administration Furosemide 40 mg 03/28/20 06:00 03/31/20 04:48 Lasix SLOW IVP 40 mg 0600,1400 [facility] Administration Diltiazem HCl 125 mg/ Sodium 125 mls @ 12.5 mls/hr 03/27/20 18:45 03/31/20 07 :27 Chloride IVPB 125 mls INF [facility] Administration Protocol Metoprolol Tartrate 25 mg 03/30/20 21:00 03/31/20 08:46 Lopressor PO 25 mg BID [facility] Administration Potassium Chloride 40 meq 03/31/20 08:00 03/31/20 08:14 K-Dur PO 40 meq QAM-WM [facility] Administration Sodium Chloride 10 ml 03/27/20 21:00 03/31/20 08:49 Flush - Normal Saline IVF Not Given Q12HR [facility] Sodium Chloride 10 ml 03/27/20 19:05 03/28/20 06:09 Flush - Normal Saline IVF 10 ml PRN PRN Administration Saline Flush Tamsulosin HCl 0.4 mg 03/27/20 21:00 03/30/20 20:41 Flomax PO 0.4 mg HS [facility] Administration - Exam General Appearance: awake alert Eye: PERRL, anicteric sclera ENT: no oropharyngeal lesions, moist mucosa Neck: supple, no JVD Heart: no murmur, irregular Respiratory: no wheezes, no rales Gastrointestinal: soft, non-tender, non-distended, normal bowel sounds Extremities: no cyanosis, no edema Neurological: cranial nerve grossly intact, no focal deficits Hosp A/P (1) Atrial fibrillation with RVR Code(s): I48.91 - UNSPECIFIED ATRIAL FIBRILLATION Status: Acute (2) Acute exacerbation of CHF (congestive heart failure) Code(s): I50.9 - HEART FAILURE, UNSPECIFIED Status: Acute Qualifiers: Heart failure type: diastolic Qualified Code(s): I50.33 - Acute on chronic diastolic (congestive) heart failure (3) HTN (hypertension) Code(s): I10 - ESSENTIAL (PRIMARY) HYPERTENSION Status: Chronic Qualifiers: Hypertension type: essential hypertension Qualified Code(s): I10 - Essential (primary) hypertension (4) FLOR (acute kidney injury) Code(s): N17.9 - ACUTE KIDNEY FAILURE, UNSPECIFIED Status: Resolved (5) BPH (benign prostatic hyperplasia) Code(s): N40.0 - BENIGN PROSTATIC HYPERPLASIA WITHOUT LOWER URINRY TRACT SYMP Status: Chronic Qualifiers: Lower urinary tract symptom presence: symptoms absent Qualified Code(s): N40.0 - Benign prostatic hyperplasia without lower urinary tract symptoms - Plan is on cardizem drip @ 12.5mg/hr, digitalized and on oral now, BB increased to 50mg bid (rates still into 120's). gentle diuresis tenzin hose to LE, edema has almost receded fully including scrotal edema, change lasix to oral. hemostable continue current meds for possible SUELLEN and cardioversion on Wednesday
--- NOTE | 2020-03-31 11:12 | PDOC.CPN ---
- Subjective Date: 03/31/20 Time: 11:10 Interval history: No complaints. HR improved to 90-120bpm overall. No CP/SOB. - Review of Systems General: denies: fever/chills, weight/appetite/sleep changes, night sweats, fatigue Respiratory: denies: cough, congestion, shortness of breath, exercise intolerance Cardiovascular: denies: chest pain, palpitation, edema, paroxysmal nocturnal dyspnea, orthopnea Gastrointestinal: denies: nausea, vomiting, diarrhea, constipation, abd pain, GI bleeding Musculoskeletal: denies: pain, tenderness, stiffness, swelling, arthritis/ arthralgias Neurological: denies: numbness, syncope, seizure, weakness - Objective Allergies/Adverse Reactions: Allergies Allergy/AdvReac Type Severity Reaction Status Date / Time Penicillins Allergy Verified 03/27/20 22:09 Sulfa (Sulfonamide Allergy Verified 03/27/20 22:09 Antibiotics) milk AdvReac stops nose Verified 03/27/20 22:10 up, thick secretions Visit Medications: Current Medications Acetaminophen (Tylenol) 650 mg PO Q4H PRN PRN Reason: Headache/Fever/Mild Pain (1-3) Apixaban (Eliquis) 2.5 mg PO BID [facility] Last Admin: 03/31/20 08:46 Dose: 2.5 mg Aspirin (Aspirin Chewable) 81 mg PO DAILY [facility] Last Admin: 03/31/20 08:46 Dose: 81 mg Bisacodyl (Dulcolax) 10 mg [place] DAILYPRN PRN PRN Reason: Constipation Calcium Carbonate (Tums) 1,000 mg PO Q4H PRN PRN Reason: Heartburn or Indigestion Digoxin (Lanoxin) 0.125 mg PO DAILY [facility] Last Admin: 03/31/20 08:45 Dose: 0.125 mg Famotidine (Pepcid) 20 mg PO BID [facility] Last Admin: 03/31/20 08:46 Dose: 20 mg Finasteride (Proscar) 5 mg PO HS [facility] Last Admin: 03/30/20 20:41 Dose: 5 mg Furosemide (Lasix) 40 mg PO 0900,1400 [facility] Guaifenesin/Dextromethorphan (Robitussin Dm) 15 ml PO Q4H PRN PRN Reason: Cough Diltiazem HCl 125 mg/ Sodium (Chloride) 125 mls @ 12.5 mls/hr IVPB INF [facility]; Protocol Last Admin: 03/31/20 07:27 Dose: 125 mls Metoprolol Tartrate (Lopressor) 50 mg PO BID [facility] Ondansetron HCl (Zofran) 4 mg IVP Q6H PRN PRN Reason: Nausea/Vomiting Potassium Chloride (K-Dur) 40 meq PO QAM-WM [facility] Last Admin: 03/31/20 08:14 Dose: 40 meq Senna/Docusate Sodium (Senokot S) 2 tab PO BID PRN PRN Reason: Constipation Sodium Chloride (Flush - Normal Saline) 10 ml IVF Q12HR [facility] Last Admin: 03/31/20 08:49 Dose: Not Given Sodium Chloride (Flush - Normal Saline) 10 ml IVF PRN PRN PRN Reason: Saline Flush Last Admin: 03/28/20 06:09 Dose: 10 ml Tamsulosin HCl (Flomax) 0.4 mg PO HS [facility] Last Admin: 03/30/20 20:41 Dose: 0.4 mg Vital Signs & Weight: Vital Signs Temp Pulse Resp BP Pulse Ox 03/31/20 08:45 119 H 03/31/20 07:35 97.9 F 119 H 14 118/74 94 L 03/31/20 04:43 97.6 F 97 18 115/78 95 03/30/20 23:15 116/54 L Weight 206 lb 6.4 oz - Physical Exam General: alert & oriented x3, appears well HEENT: mucus membranes moist Neck: supple neck Cardiac: other (IRR IRR) Lungs: normal breath sounds Neuro: grossly intact Abdomen: soft Extremities: no edema Skin: clear Musculoskeletal: no pain - Labs Result Diagrams: 03/30/20 04:43 03/31/20 05:50 Troponin/CKMB Troponin I 0.020 ng/mL (< 0.028) 03/27/20 15:05 - Assessment/Plan Assessment/Plan: 1. AF with RVR 2. Acute on chronic diastolic CHF 3. Hx GIB on Eliquis Remains AF with frequent RVR. Rate somewhat improved today. Will keep NPO in plan for SUELLEN/CV in AM. ? Add Amio.
[2020-03-31] MEDS: Furosemide 40 MG TAB PO SCH (13:58)
[2020-03-31] MEDS: Tamsulosin HCl 0.4 MG CAP PO SCH (19:45)
[2020-03-31] MEDS: Melatonin 3 MG TAB PO SCH (19:45)
[2020-03-31] MEDS: Finasteride 5 MG TAB PO SCH (19:45)
[2020-03-31] MEDS: Metoprolol Tartrate 50 MG TAB PO SCH (19:45)
[2020-04-01] MEDS: Diltiazem 125 MG in Sodium Chloride 0.9% 100 ML IVPB SCH (06:00)
[2020-04-01] MEDS: Aspirin Chewable 81 MG TAB PO SCH (06:01)
[2020-04-01] MEDS: Potassium Chloride 20 MEQ TAB PO SCH (06:01)
[2020-04-01] MEDS: Furosemide 40 MG TAB PO SCH ×2 (06:02→15:13)
[2020-04-01] MEDS: Apixaban 2.5 MG TAB PO SCH (06:02)
[2020-04-01] MEDS: Metoprolol Tartrate 50 MG TAB PO SCH (06:02)
[2020-04-01] MEDS: Digoxin 0.125 MG TAB PO SCH (06:02)
[2020-04-01] MEDS: Famotidine 20 MG TAB PO SCH ×2 (06:02→20:33)
[2020-04-01 09:07] LABS: Anion Gap 11 mmol/L (10-20); BUN (Urea Nitrogen) 19 mg/dL (8.4-25.7); Calc. Creatinine Clearance 92 mL/min (70-130); Calcium 8.4 mg/dL (7.8-10.44); Carbon Dioxide 30 mmol/L (23-31); Chloride 101 mmol/L (98-107); Estimated GFR-MDRD 84; Glucose 100 mg/dL (83-110); Potassium 3.9 mmol/L (3.5-5.1); Sodium 138 mmol/L (136-145)
--- NOTE | 2020-04-01 09:54 | PDOC.CPN ---
- Subjective Date: 04/01/20 Time: 08:30 Interval history: The pt seen and examined. No overnight events. No cardiac complaints. - Objective Allergies/Adverse Reactions: Allergies Allergy/AdvReac Type Severity Reaction Status Date / Time Penicillins Allergy Verified 03/27/20 22:09 Sulfa (Sulfonamide Allergy Verified 03/27/20 22:09 Antibiotics) milk AdvReac stops nose Verified 03/27/20 22:10 up, thick secretions Visit Medications: Current Medications Acetaminophen (Tylenol) 650 mg PO Q4H PRN PRN Reason: Headache/Fever/Mild Pain (1-3) Apixaban (Eliquis) 2.5 mg PO BID [facility] Last Admin: 04/01/20 06:02 Dose: 2.5 mg Aspirin (Aspirin Chewable) 81 mg PO DAILY [facility] Last Admin: 04/01/20 06:01 Dose: 81 mg Bisacodyl (Dulcolax) 10 mg [place] DAILYPRN PRN PRN Reason: Constipation Calcium Carbonate (Tums) 1,000 mg PO Q4H PRN PRN Reason: Heartburn or Indigestion Digoxin (Lanoxin) 0.125 mg PO DAILY [facility] Last Admin: 04/01/20 06:02 Dose: 0.125 mg Famotidine (Pepcid) 20 mg PO BID [facility] Last Admin: 04/01/20 06:02 Dose: 20 mg Finasteride (Proscar) 5 mg PO HS [facility] Last Admin: 03/31/20 19:45 Dose: 5 mg Furosemide (Lasix) 40 mg PO 0900,1400 [facility] Last Admin: 04/01/20 06:02 Dose: 40 mg Guaifenesin/Dextromethorphan (Robitussin Dm) 15 ml PO Q4H PRN PRN Reason: Cough Diltiazem HCl 125 mg/ Sodium (Chloride) 125 mls @ 12.5 mls/hr IVPB INF [facility]; Protocol Last Admin: 04/01/20 06:00 Dose: 125 mls Melatonin (Melatonin) 6 mg PO 2100 [facility] Last Admin: 03/31/20 19:45 Dose: 6 mg Metoprolol Tartrate (Lopressor) 50 mg PO BID [facility] Last Admin: 04/01/20 06:02 Dose: 50 mg Ondansetron HCl (Zofran) 4 mg IVP Q6H PRN PRN Reason: Nausea/Vomiting Potassium Chloride (K-Dur) 40 meq PO QAM-WM [facility] Last Admin: 04/01/20 06:01 Dose: 40 meq Senna/Docusate Sodium (Senokot S) 2 tab PO BID PRN PRN Reason: Constipation Sodium Chloride (Flush - Normal Saline) 10 ml IVF Q12HR [facility] Last Admin: 04/01/20 06:03 Dose: 10 ml Sodium Chloride (Flush - Normal Saline) 10 ml IVF PRN PRN PRN Reason: Saline Flush Last Admin: 03/28/20 06:09 Dose: 10 ml Tamsulosin HCl (Flomax) 0.4 mg PO HS [facility] Last Admin: 03/31/20 19:45 Dose: 0.4 mg Vital Signs & Weight: Vital Signs Temp Pulse Resp BP Pulse Ox 04/01/20 07:59 96.2 F L 70 16 109/70 95 04/01/20 06:02 100 04/01/20 03:18 98.4 F 78 18 88/56 L 94 L Weight 207 lb 1.6 oz - Physical Exam General: alert & oriented x3 HEENT: mucus membranes moist Neck: supple neck Cardiac: irregularly regular Lungs: decreased breath sounds Neuro: cranial nerve 2-12 intact - Labs Result Diagrams: 03/30/20 04:43 04/01/20 08:33 Troponin/CKMB Troponin I 0.020 ng/mL (< 0.028) 03/27/20 15:05 - Telemetry Supraventricular conduction: atrial fibrillation - Assessment/Plan Assessment/Plan: 1. Recurrent AF with RVR - Plan for SUELLEN/DCCV today by Dr Bhagat; On diltiazem drip and Lovenox; 2. Acute on chronic diastolic CHF 3. SSS (oupt PM placement is on hold due to COVID 19 epidemic) - stable HR; possible PM placement during this hospitalization for bradycarida 4. HTN - stable 5. FLOR - improved 6. Hx GIB on Eliquis - On Eliquis 2.5mg BID since 03/29/2020 with no Hgb level changes. * Echo in 10/2019 with EF 65%, moderate to severe left atrial enlargement of 5 cm, mild to moderate MR, mild TR. * Nuclear stress test from 10/26/2019 reveals LVEF of 60%. No ischemia or scar. * Explains the procedure and the risk of SULELEN/DCCV including, but no limited to: bleeding, throat irritation, cardiac arrest, and . The pt and family voiced understanding and no questions or concerns. They agree to proceed the procedure by Dr Bhagat.
[2020-04-01] MEDS ORDERED: PROPOFOL 20 ML ONE (11:28)
[2020-04-01] MEDS ORDERED: Diltiazem 125 MG in Sodium Chloride 0.9% 100 ML IVPB SCH (12:25)
[2020-04-01] MEDS ORDERED: Sodium Chloride 0.9% 250 ML IV SCH (13:30)
--- NOTE | 2020-04-01 16:29 | PDOC.EP ---
- Subjective Date: 04/01/20 Time: 16:28 Interval History: s/p SUELLEN/CV this AM. Feels well. Voices no cardiac complaints today. - Review of Systems Constitutional: denies: chills, fever, malaise, sweats, weakness Respiratory: denies: cough, shortness of breath, wheezing Cardiology: denies: chest pain, light headedness, passing out Gastrointestinal: denies: abdominal pain, constipation, diarrhea Musculoskeletal: denies: unstable gait, falls, neck pain - Objective Allergies/Adverse Reactions: Allergies Allergy/AdvReac Type Severity Reaction Status Date / Time Penicillins Allergy Verified 03/27/20 22:09 Sulfa (Sulfonamide Allergy Verified 03/27/20 22:09 Antibiotics) milk AdvReac stops nose Verified 03/27/20 22:10 up, thick secretions Current Medications Acetaminophen (Tylenol) 650 mg PO Q4H PRN PRN Reason: Headache/Fever/Mild Pain (1-3) Amiodarone HCl (Cordarone) 400 mg PO BID [facility] Amiodarone HCl (Cordarone) 400 mg PO NOW [facility] Apixaban (Eliquis) 2.5 mg PO BID [facility] Last Admin: 04/01/20 06:02 Dose: 2.5 mg Aspirin (Aspirin Chewable) 81 mg PO DAILY [facility] Last Admin: 04/01/20 06:01 Dose: 81 mg Bisacodyl (Dulcolax) 10 mg [place] DAILYPRN PRN PRN Reason: Constipation Calcium Carbonate (Tums) 1,000 mg PO Q4H PRN PRN Reason: Heartburn or Indigestion Carvedilol (Coreg) 12.5 mg PO BID [facility] Dronedarone (Multaq) 400 mg PO BID[facility] Famotidine (Pepcid) 20 mg PO BID [facility] Last Admin: 04/01/20 06:02 Dose: 20 mg Finasteride (Proscar) 5 mg PO HS [facility] Last Admin: 03/31/20 19:45 Dose: 5 mg Furosemide (Lasix) 40 mg PO 0900,1400 [facility] Last Admin: 04/01/20 15:13 Dose: 40 mg Guaifenesin/Dextromethorphan (Robitussin Dm) 15 ml PO Q4H PRN PRN Reason: Cough Melatonin (Melatonin) 6 mg PO 2100 [facility] Last Admin: 03/31/20 19:45 Dose: 6 mg Ondansetron HCl (Zofran) 4 mg IVP Q6H PRN PRN Reason: Nausea/Vomiting Potassium Chloride (K-Dur) 40 meq PO QAM-WM [facility] Last Admin: 04/01/20 06:01 Dose: 40 meq Senna/Docusate Sodium (Senokot S) 2 tab PO BID PRN PRN Reason: Constipation Sodium Chloride (Flush - Normal Saline) 10 ml IVF Q12HR [facility] Last Admin: 04/01/20 06:03 Dose: 10 ml Sodium Chloride (Flush - Normal Saline) 10 ml IVF PRN PRN PRN Reason: Saline Flush Last Admin: 03/28/20 06:09 Dose: 10 ml Tamsulosin HCl (Flomax) 0.4 mg PO HS [facility] Last Admin: 03/31/20 19:45 Dose: 0.4 mg Vital Signs & Weight: Vital Signs Temp Pulse Pulse Pulse Resp BP BP 04/01/20 13:20 97.4 F L 51 L 16 98/68 04/01/20 10:46 83 83 109/75 04/01/20 08:00 04/01/20 07:59 96.2 F L 70 16 109/70 04/01/20 06:02 100 Pulse Ox 04/01/20 13:20 98 04/01/20 10:46 04/01/20 08:00 95 04/01/20 07:59 95 04/01/20 06:02 Weight 207 lb 1.6 oz I/O: I/O 03/31/20 04/01/20 04/02/20 06:59 06:59 06:59 Intake Total 1930 700 Output Total 2725 400 Balance -795 300 - Quality Measures Condition: Atrial Fibrillation/Flutter (hx or current) CV meds: Eliquis: Yes (low dose) - Physical Exam General: alert & oriented x3, appears well, no apparent distress, speech clear, affect appropriate HEENT: mucus membranes moist, normocephaly Neck: supple neck, midline trachea, no JVD/HJR, no masses, no bruit, no lymphadenopathy, no thromegaly Cardiology: regular rate and rhythm, PMI nondisplaced Lungs: clear to auscultation, normal breath sounds, no wheeze, rales, rhonchi Neurology: cranial nerve 2-12 intact, grossly intact, no lateralizing findings - Chadsvasc Risk factors Age >75: 2 Risk Score: 2 - Labs Result Diagrams: 03/30/20 04:43 04/01/20 08:33 - EKG Interpretation EKG Method: Telemetry EKG shows: Sinus rhythm - Assessment/Plan Assessment/Plan: PROBLEMS: 1. Paroxysmal atrial fibrillation with rapid ventricular rate. a. Recurrent episodes of atrial fibrillation since 2016 and current admission with atrial fibrillation with rapid rate. 2. Sinus node dysfunction with tendency for bradycardia. 3. Acute on chronic diastolic heart failure exacerbation. a. A 2D echo from 11/05/2019 showed LVEF 65%, moderate to severe left atrial enlargement of 5 cm, mild to moderate MR, mild TR. b. Nuclear stress test from 10/26/2019 reveals LVEF of 60%. No ischemia or scar. 4. History of non-ST elevation myocardial infarction type 2 with RVR in the past. 5. CHADS score of 2 due to age, treated with Eliquis. a. GI bleed related to discontinuation of Eliquis in the past. history of + guiac in Nov 2019 6. History of varicose veins. 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 Paroxysmal AT runs being seen on telemetry. Will likely require AAD to maintain SR. Multaq or amiodarone are options but both will further his tendency for bradycardia. He has tachy-jeromy syndrome and cardiology is evaluating him for permanent pacemaker placement. Starting amiodarone loading taper. Multaq will likely not be an option financially. Discussed long-term toxicity potential with amiodarone. Stopping digoxin as I start amio. Also stopping dilt. gtt. CBC pending for the AM. Will see how H& H are after a few days on reduced dose eliquis. If he is able to tolerate low dose therapy for a few month, he could be a candidate for a watchman as an OP
[2020-04-01] MEDS ORDERED: Dronedarone HCl 400 MG TAB PO SCH (17:00)
[2020-04-01] MEDS ORDERED: Amiodarone 200 MG TAB PO SCH ×2 (17:15→21:00)
--- NOTE | 2020-04-01 18:48 | PRG ---
DATE OF SERVICE: 04/01/2020 SUBJECTIVE: A 79-year-old male with chronic atrial fibrillation, presented to the hospital with bilateral lower extremity edema along with palpitations. His workup was consistent with atrial fibrillation with rapid ventricular response along with congestive heart failure exacerbation. He was started on Cardizem drip along with IV diuretics. He was evaluated by Cardiology and Electrophysiology. He underwent SUELLEN cardioversion today. He denies any chest discomfort, shortness of breath, or palpitations at this time. REVIEW OF SYSTEMS: All other review of systems was reviewed and was found negative. CURRENT MEDICATIONS: Reviewed. PHYSICAL EXAMINATION: VITAL SIGNS: Temperature 97.4, pulse rate of 51, respirations 16, blood pressure of 109/70, O2 saturation 98% on room air. GENERAL: A 79-year-old male in no apparent distress. LUNGS: Clear to auscultation bilaterally. No wheezing or rales. HEART: S1 and S2 present. Regular rate and rhythm. ABDOMEN: Soft. Bowel sounds present. EXTREMITIES: No calf tenderness. NEUROLOGIC: Grossly nonfocal. LABORATORY FINDINGS: Potassium 3.4 yesterday and today was 3.9, magnesium 2.3, hemoglobin 15.4. Chest x-ray by my review showed borderline pulmonary vascular congestion with mild cardiomegaly. Telemetry monitoring by my review showed sinus rhythm. IMPRESSION: 1. Atrial fibrillation with rapid ventricular response, status post transesophageal echocardiogram cardioversion. 2. Acute on chronic diastolic heart failure. 3. Sick sinus syndrome. The patient will probably need pacemaker as outpatient. 4. Chronic anticoagulation with low-dose Eliquis due to gastrointestinal bleeding. 5. Hypokalemia, replaced. 6. Mild acute kidney injury with creatinine of 1.59 on admission, improved, probably due to cardiorenal syndrome. 7. Benign prostatic hypertrophy. 8. Obesity with a body mass index of 30.6. 9. Chronic kidney disease, stage 2. 10. Chronic anemia, probably due to nutritional deficiency. PLAN: 1. We will continue low-dose Cardizem drip. Continue amiodarone with low-dose Eliquis. We will continue digoxin and carvedilol. Metoprolol has been discontinued. We will recheck labs in a.m. Continue cardiac rehab. 2. The patient understands the above plan of care. 3. Discharge planning. We will try to arrange for home health care. Job ID: [id number]
[2020-04-01] MEDS: Carvedilol 6.25 MG TAB PO SCH (20:33)
[2020-04-01] MEDS: Finasteride 5 MG TAB PO SCH (20:34)
[2020-04-01] MEDS: Tamsulosin HCl 0.4 MG CAP PO SCH (20:34)
[2020-04-01] MEDS: Amiodarone 200 MG TAB PO SCH (20:34)
[2020-04-01] MEDS: Melatonin 3 MG TAB PO SCH (20:35)
[2020-04-02 04:11] LABS: #Eosinphils 0.3 thou/uL (0.0-0.7); #Lymphocytes 1.7 thou/uL (1.20-3.40); #Monocytes 0.8 thou/uL (0.11-0.59); #Neutrophils 4.6 thou/uL (1.40-6.50); %Basophils 0.6 % (0.0-1.0); %Eosinophils 4.1 % (0.0-10.0); %Monocytes 10.3 % (0.0-10.0); %Neutrophils 62.1 % (42.0-75.0); Hemoglobin 14.2 g/dL (14.0-18.0); Mean Corpuscular HGB CONC 32.4 g/dL (32.0-36.0); Mean Corpuscular Hemoglobin 32.3 pg (27.0-31.0); Mean Corpuscular Volume 99.7 fL (78.0-98.0); Mean Platelet Volume 8.7 fL (7.4-10.4); Platelet Count 138 thou/uL (130-400); RBC Distribution Width 14.1 % (11.5-14.5); Red Blood Cell (RBC) Count 4.39 mill/uL (4.70-6.10); White Blood Cell (WBC) Count 7.5 thou/uL (4.8-10.8)
[2020-04-02 04:35] LABS: Anion Gap 11 mmol/L (10-20); BUN (Urea Nitrogen) 22 mg/dL (8.4-25.7); Calc. Creatinine Clearance 83 mL/min (70-130); Calcium 8.4 mg/dL (7.8-10.44); Carbon Dioxide 28 mmol/L (23-31); Chloride 102 mmol/L (98-107); Estimated GFR-MDRD 75; Glucose 90 mg/dL (83-110); Magnesium 2.2 mg/dL (1.6-2.6); Sodium 137 mmol/L (136-145)
[2020-04-02] MEDS: Carvedilol 6.25 MG TAB PO SCH ×2 (08:20→20:03)
[2020-04-02] MEDS: Famotidine 20 MG TAB PO SCH ×2 (08:20→20:12)
[2020-04-02] MEDS: Aspirin Chewable 81 MG TAB PO SCH (08:20)
[2020-04-02] MEDS: Amiodarone 200 MG TAB PO SCH ×3 (08:20→20:03)
[2020-04-02] MEDS: Potassium Chloride 20 MEQ TAB PO SCH (08:20)
[2020-04-02] MEDS: Furosemide 40 MG TAB PO SCH ×2 (08:21→13:16)
--- NOTE | 2020-04-02 09:57 | PDOC.EP ---
- Subjective Date: 04/02/20 Time: 08:00 Interval History: Follow-up for atrial fibrillation. Patient feels well this morning. He will remain in the hospital pending pacemaker implant tomorrow with Cardiology. Heart rhythm has been stable and amiodarone was initiated last night. He is tolerating this medication well so far - Review of Systems Constitutional: reports: chills, sweats, weakness Respiratory: reports: cough, shortness of breath, wheezing Cardiology: reports: chest pain, heart racing, light headedness, palpitations, passing out Gastrointestinal: reports: abdominal pain, constipation, diarrhea Musculoskeletal: reports: unstable gait, falls, neck pain, shoulder pain - Objective Allergies/Adverse Reactions: Allergies Allergy/AdvReac Type Severity Reaction Status Date / Time Penicillins Allergy Verified 03/27/20 22:09 Sulfa (Sulfonamide Allergy Verified 03/27/20 22:09 Antibiotics) milk AdvReac stops nose Verified 03/27/20 22:10 up, thick secretions Current Medications Acetaminophen (Tylenol) 650 mg PO Q4H PRN PRN Reason: Headache/Fever/Mild Pain (1-3) Amiodarone HCl (Cordarone) 200 mg PO TID [facility] Last Admin: 04/02/20 08:20 Dose: 200 mg Aspirin (Aspirin Chewable) 81 mg PO DAILY [facility] Last Admin: 04/02/20 08:20 Dose: 81 mg Bisacodyl (Dulcolax) 10 mg [place] DAILYPRN PRN PRN Reason: Constipation Calcium Carbonate (Tums) 1,000 mg PO Q4H PRN PRN Reason: Heartburn or Indigestion Carvedilol (Coreg) 12.5 mg PO BID [facility] Last Admin: 04/02/20 08:20 Dose: 12.5 mg Famotidine (Pepcid) 20 mg PO BID [facility] Last Admin: 04/02/20 08:20 Dose: 20 mg Finasteride (Proscar) 5 mg PO HS [facility] Last Admin: 04/01/20 20:34 Dose: 5 mg Furosemide (Lasix) 40 mg PO 0900,1400 [facility] Last Admin: 04/02/20 08:21 Dose: 40 mg Guaifenesin/Dextromethorphan (Robitussin Dm) 15 ml PO Q4H PRN PRN Reason: Cough Melatonin (Melatonin) 6 mg PO 2100 [facility] Last Admin: 04/01/20 20:35 Dose: 6 mg Ondansetron HCl (Zofran) 4 mg IVP Q6H PRN PRN Reason: Nausea/Vomiting Potassium Chloride (K-Dur) 40 meq PO QAM-WM [facility] Last Admin: 04/02/20 08:20 Dose: 40 meq Senna/Docusate Sodium (Senokot S) 2 tab PO BID PRN PRN Reason: Constipation Sodium Chloride (Flush - Normal Saline) 10 ml IVF Q12HR [facility] Last Admin: 04/02/20 08:21 Dose: 10 ml Sodium Chloride (Flush - Normal Saline) 10 ml IVF PRN PRN PRN Reason: Saline Flush Last Admin: 03/28/20 06:09 Dose: 10 ml Tamsulosin HCl (Flomax) 0.4 mg PO HS [facility] Last Admin: 04/01/20 20:34 Dose: 0.4 mg Vital Signs & Weight: Vital Signs Temp Pulse Resp BP BP Pulse Ox 04/02/20 07:45 98.3 F 63 18 120/66 94 L 04/02/20 06:52 95 04/02/20 04:31 97.9 F 63 16 128/69 95 Weight 210 lb 14.4 oz I/O: I/O 04/01/20 04/02/20 04/03/20 06:59 06:59 06:59 Intake Total 700 1091.7 Output Total 400 600 Balance 300 491.7 - Quality Measures Condition: Atrial Fibrillation/Flutter (hx or current) CV meds: Eliquis: Yes (low dose) - Physical Exam General: alert & oriented x3, appears well, speech clear, affect appropriate HEENT: mucus membranes moist, normocephaly Neck: supple neck, midline trachea, no lymphadenopathy Cardiology: regular rate and rhythm Lungs: clear to auscultation, no wheeze, rales, rhonchi Neurology: cranial nerve 2-12 intact, grossly intact, no lateralizing findings Abdomen: unremarkable, active bowel sounds, no pulsations/bruits Extremities: dry, strong pulses, warm Musculoskeletal: normal range of motion - Labs Result Diagrams: 04/02/20 03:29 04/02/20 03:29 - EKG Interpretation EKG Method: Telemetry EKG shows: Sinus rhythm - Assessment/Plan Assessment/Plan: PROBLEMS: 1. Paroxysmal atrial fibrillation with rapid ventricular rate. a. Recurrent episodes of atrial fibrillation since 2016 and current admission with atrial fibrillation with rapid rate. 2. Sinus node dysfunction with tendency for bradycardia. 3. Acute on chronic diastolic heart failure exacerbation. a. A 2D echo from 11/05/2019 showed LVEF 65%, moderate to severe left atrial enlargement of 5 cm, mild to moderate MR, mild TR. b. Nuclear stress test from 10/26/2019 reveals LVEF of 60%. No ischemia or scar. 4. History of non-ST elevation myocardial infarction type 2 with RVR in the past. 5. CHADS score of 2 due to age, treated with Eliquis. a. GI bleed related to discontinuation of Eliquis in the past. history of + guiac in Nov 2019 6. History of varicose veins. 7. 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 Amiodarone loading taper was started yesterday and he is tolerating this well remaining in sinus rhythm. Discussed terminologist toxicity potential with amiodarone. His hemoglobin dropped 1 point in the past 2 days. the history of positive stool guaiac. No overt bleeding is seen but he may benefit from GI evaluation and endoscopy. If no identifiable source of bleeding is found and he is a poor candidate for long-term anticoagulation, but able to tolerate at least low-dose Eliquis for a short time, we could consider Watchman implant for left atrial appendage closure. For now continue amiodarone loading and preparation for pacemaker with Cardiology.
--- NOTE | 2020-04-02 11:27 | CCLSPC ---
INDICATION FOR PROCEDURE: A 79-year-old patient with atrial fibrillation with rapid ventricular response, difficult to control, has been placed on IV diltiazem, has been on IV Lovenox. He was advised to undergo a transesophageal echocardiogram to rule out evidence of any cardiac thrombi or masses or left atrial appendage thrombus. He was taken to the recovery area where he underwent short-acting propofol and the transesophageal probe was easily passed down the distal esophagus. IMPRESSIONS: As follows: 1. Well-preserved left ventricular systolic function. Ejection fraction appears to be normal. 2. Left atrial dilatation, left atrium is 4.8 cm. There is no evidence of left atrial appendage thrombus or left atrial thrombus. The flow in the left atrial appendage is approximately 4 m/sec. There was a moderate to severe mitral valve regurgitation, mild tricuspid valve regurgitation. The aortic valve has some mild thickening of one of the cuffs, but there was no significant stenosis. There was no evidence of aortic valve regurgitation. The valvular structures appeared to be normal. The patient tolerated the procedure well. Job ID: [id number]
--- NOTE | 2020-04-02 11:27 | CCLSPC ---
INDICATION FOR PROCEDURE: The patient has atrial fibrillation with a poorly controlled ventricular response with significant tachycardia. He was advised to undergo a transesophageal echocardiogram and then possible electrical cardioversion if there was no evidence of left atrial appendage thrombus. He was taken to the lab and no thrombus was noted on the transesophageal echocardiogram and then the patient underwent an electrical cardioversion of his atrial fibrillation. Using one attempt at 200 joules, we attempted to convert the patient to sinus rhythm. He was converted to sinus rhythm but then again converted back to atrial fibrillation. Then while the patient was still under anesthesia, a second attempt at 300 joules was performed and then the patient converted to sinus rhythm with bradycardia, occasional PACs, but then maintained a sinus bradycardia with a heart rate in the 50s and 60s. There were no difficulties or complications encountered, and the patient tolerated the procedure well. IMPRESSION: Successful electrical cardioversion. Successful cardioversion of his atrial fibrillation back to sinus rhythm with a heart rate in the low 50s. Blood pressure remained stable. There were no complications or difficulties encountered. Job ID: [id number] [facility]
--- NOTE | 2020-04-02 12:35 | PDOC.CPN ---
- Subjective Date: 04/02/20 Time: 08:30 Interval history: The pt seen and examined. No overnight events. No cardiac complaints. - Objective Allergies/Adverse Reactions: Allergies Allergy/AdvReac Type Severity Reaction Status Date / Time Penicillins Allergy Verified 03/27/20 22:09 Sulfa (Sulfonamide Allergy Verified 03/27/20 22:09 Antibiotics) milk AdvReac stops nose Verified 03/27/20 22:10 up, thick secretions Visit Medications: Current Medications Acetaminophen (Tylenol) 650 mg PO Q4H PRN PRN Reason: Headache/Fever/Mild Pain (1-3) Amiodarone HCl (Cordarone) 200 mg PO TID [facility] Last Admin: 04/02/20 08:20 Dose: 200 mg Aspirin (Aspirin Chewable) 81 mg PO DAILY [facility] Last Admin: 04/02/20 08:20 Dose: 81 mg Bisacodyl (Dulcolax) 10 mg [place] DAILYPRN PRN PRN Reason: Constipation Calcium Carbonate (Tums) 1,000 mg PO Q4H PRN PRN Reason: Heartburn or Indigestion Carvedilol (Coreg) 12.5 mg PO BID [facility] Last Admin: 04/02/20 08:20 Dose: 12.5 mg Famotidine (Pepcid) 20 mg PO BID [facility] Last Admin: 04/02/20 08:20 Dose: 20 mg Finasteride (Proscar) 5 mg PO HS [facility] Last Admin: 04/01/20 20:34 Dose: 5 mg Furosemide (Lasix) 40 mg PO 0900,1400 [facility] Last Admin: 04/02/20 08:21 Dose: 40 mg Guaifenesin/Dextromethorphan (Robitussin Dm) 15 ml PO Q4H PRN PRN Reason: Cough Melatonin (Melatonin) 6 mg PO 2100 [facility] Last Admin: 04/01/20 20:35 Dose: 6 mg Ondansetron HCl (Zofran) 4 mg IVP Q6H PRN PRN Reason: Nausea/Vomiting Potassium Chloride (K-Dur) 40 meq PO QAM-WM [facility] Last Admin: 04/02/20 08:20 Dose: 40 meq Senna/Docusate Sodium (Senokot S) 2 tab PO BID PRN PRN Reason: Constipation Sodium Chloride (Flush - Normal Saline) 10 ml IVF Q12HR [facility] Last Admin: 04/02/20 08:21 Dose: 10 ml Sodium Chloride (Flush - Normal Saline) 10 ml IVF PRN PRN PRN Reason: Saline Flush Last Admin: 03/28/20 06:09 Dose: 10 ml Sodium Chloride (Flush - Normal Saline) 10 ml IVF Q12HR [facility] Sodium Chloride (Flush - Normal Saline) 10 ml IVF PRN PRN PRN Reason: Saline Flush Tamsulosin HCl (Flomax) 0.4 mg PO HS [facility] Last Admin: 04/01/20 20:34 Dose: 0.4 mg Vital Signs & Weight: Vital Signs Temp Pulse Pulse Pulse Resp BP BP 04/02/20 11:30 98.3 F 58 L 18 04/02/20 09:48 55 L 64 115/69 96/59 L 04/02/20 07:45 98.3 F 63 18 04/02/20 06:52 04/02/20 04:31 97.9 F 63 16 BP BP Pulse Ox 04/02/20 11:30 116/68 94 L 04/02/20 09:48 04/02/20 07:45 120/66 94 L 04/02/20 06:52 95 04/02/20 04:31 128/69 95 Weight 210 lb 14.4 oz - Physical Exam General: alert & oriented x3 HEENT: mucus membranes moist Neck: supple neck Cardiac: regular rate and rhythm, S1/S2 Lungs: clear to auscultation Neuro: cranial nerve 2-12 intact Abdomen: unremarkable Extremities: no cyanosis - Labs Result Diagrams: 04/02/20 03:29 04/02/20 03:29 Troponin/CKMB Troponin I 0.020 ng/mL (< 0.028) 03/27/20 15:05 - Telemetry Sinus rhythms and dysrhythmias: sinus rhythm - Assessment/Plan Assessment/Plan: 1. Recurrent AF with RVR with s/p SUELLEN/DCCV on 04/01/2020 - Amiodarone 200mg TID taper was started in PM on 04/01/2020; remians in SR; On Eliquis 2.5mg BID; 2. Acute on chronic diastolic CHF 3. SSS (oupt PM placement is on hold due to COVID 19 epidemic) - stable HR; possible PM placement tomorrow 4. HTN - stable 5. FLOR - improved 6. Hx GIB on Eliquis - On Eliquis 2.5mg BID since 03/29/2020 with Hgb level WNL. * Echo in 10/2019 with EF 65%, moderate to severe left atrial enlargement of 5 cm, mild to moderate MR, mild TR. * Nuclear stress test from 10/26/2019 reveals LVEF of 60%. No ischemia or scar. * Explains the procedure and the risk of PM placement including, but no limited to: bleeding, infection, pneumothorax, and . The pt voiced understanding and no questions or concerns. They agree to proceed the procedure by Dr Bhagat. Pt. seen and eval. by me. I agree with the A/P by the RACING MANAGER.discussed pacemaker placement for tomorrow. all questions answered. socorro
--- NOTE | 2020-04-02 14:51 | PDOC.HOSPP ---
- Subjective Encounter Date: 04/02/20 Encounter Time: 13:00 Subjective: Patient seen and examined for Afib and CHF. No CP/SOB. No new complaints. No overnight events - Objective Vital Signs & Weight: Vital Signs (12 hours) Temp Pulse Pulse Pulse Resp BP BP 04/02/20 11:30 98.3 F 58 L 18 04/02/20 09:48 55 L 64 115/69 96/59 L 04/02/20 07:45 98.3 F 63 18 04/02/20 06:52 04/02/20 04:31 97.9 F 63 16 BP BP Pulse Ox 04/02/20 11:30 116/68 94 L 04/02/20 09:48 04/02/20 07:45 120/66 94 L 04/02/20 06:52 95 04/02/20 04:31 128/69 95 Weight Weight 210 lb 14.4 oz I&O: 04/01/20 04/02/20 04/03/20 06:59 06:59 06:59 Intake Total 700 1091.7 Output Total 400 600 Balance 300 491.7 Result Diagrams: 04/02/20 03:29 04/02/20 03:29 EKG Reviewed by me: Yes (Tele SR) Hospitalist ROS - Review of Systems Respiratory: denies: cough, dry, shortness of breath, hemoptysis, SOB with excertion, pleuritic pain, sputum, wheezing, other Cardiovascular: denies: chest pain, palpitations, orthopnea, paroxysmal noc. dyspnea, edema, light headedness, other - Medication Medications: Active Medications Generic Name Dose Route Start Last Admin Trade Name Freq PRN Reason Stop Dose Admin Amiodarone HCl 200 mg 04/01/20 21:00 04/02/20 08:20 Cordarone PO 200 mg TID [facility]ATHY Administration Aspirin 81 mg 03/28/20 09:00 04/02/20 08:20 Aspirin Chewable PO 81 mg DAILY [facility] Administration Carvedilol 12.5 mg 04/01/20 21:00 04/02/20 08:20 Coreg PO 12.5 mg BID [facility]ATHY Administration Famotidine 20 mg 03/27/20 21:00 04/02/20 08:20 Pepcid PO 20 mg BID [facility] Administration Finasteride 5 mg 03/27/20 21:00 04/01/20 20:34 Proscar PO 5 mg HS [facility]ATH[facility] Administration Furosemide 40 mg 03/31/20 14:00 04/02/20 13:16 Lasix PO 40 mg 0900,1400 [facility]ATHY Administration Melatonin 6 mg 03/31/20 21:00 04/01/20 20:35 Melatonin PO 6 mg 2100 [facility] Administration Potassium Chloride 40 meq 03/31/20 08:00 04/02/20 08:20 K-Dur PO 40 meq QAM-WM KATHY Administration Sodium Chloride 10 ml 03/27/20 21:00 04/02/20 08:21 Flush - Normal Saline IVF 10 ml Q12HR KATHY Administration Sodium Chloride 10 ml 03/27/20 19:05 03/28/20 06:09 Flush - Normal Saline IVF 10 ml PRN PRN Administration Saline Flush Tamsulosin HCl 0.4 mg 03/27/20 21:00 04/01/20 20:34 Flomax PO 0.4 mg HS [facility]ATHY Administration - Exam General Appearance: NAD Heart: RRR, no gallops Respiratory: no wheezes, no ronchi Gastrointestinal: non-tender, non-distended, normal bowel sounds Extremities: no cyanosis, no clubbing Neurological: no new deficit Hosp A/P - Plan DVT proph w/SCDs 1. Atrial fibrillation with rapid ventricular response, status post SUELLEN cardioversion. 2. Acute on chronic diastolic heart failure. 3. Sick sinus syndrome. 4. Chronic anticoagulation with low-dose Eliquis due to gastrointestinal bleeding. 5. Hypokalemia. 6. FLOR 7. BPH 8. Obesity with a BMI30.6. 9. CKD 2. 10. Chronic anemia, probably due to nutritional deficiency. PLAN: Off Cardizem drip Cont Amiodarone loading Anticoag on hold for PM in AM Cont Coreg/Digoxin Cont PO Lasix with Potassium AM labs Cont other meds as above
[2020-04-02] MEDS: Melatonin 3 MG TAB PO SCH (20:05)
[2020-04-02] MEDS: Finasteride 5 MG TAB PO SCH (20:12)
[2020-04-02] MEDS: Tamsulosin HCl 0.4 MG CAP PO SCH (20:13)
--- NOTE | 2020-04-03 01:17 | CON ---
DATE OF CONSULTATION: 04/02/2020 CHIEF COMPLAINT: History of gastrointestinal bleeding. HISTORY OF PRESENT ILLNESS: Mr. Mckenzie is a 79-year-old man who was admitted with atrial fibrillation with rapid ventricular response and CHF exacerbation. He was started on Cardizem drip. He was given IV Lovenox. He underwent a transesophageal echocardiogram, which did not show an obvious thrombus. He then underwent cardioversion yesterday, which was successful to come back to sinus rhythm. He states that tomorrow he is planning to have a pacemaker placed. He has had no abdominal pain. No nausea or vomiting. No diarrhea or constipation or recent blood in the stool. Back in November of 2019 he had been on Eliquis for AFib. He took the medication for a relatively short time, but then he passed several red bloody stools at home and he was told to stop the Eliquis. He has been off it since then and has been doing fine up until now. He has now been restarted on Eliquis due to the atrial fibrillation. Cardiology consulted due to the concern of the previous GI bleed. The patient has had no overt bleeding. However, here other than today he had a nosebleed. He has been back on Eliquis for the last few days. He has been on the lower dose 2.5 mg twice daily. He has never had a colonoscopy or upper endoscopy per his report. PAST MEDICAL HISTORY: Atrial fibrillation, BPH, diastolic heart failure, varicose veins. PAST SURGICAL HISTORY: Tonsillectomy, inguinal hernia repair. He had electrocardioversion in this hospitalization. FAMILY HISTORY: Negative for GI malignancy. SOCIAL HISTORY: No alcohol, tobacco, or drugs. ALLERGIES: PENICILLIN, SULFA, MILK. MEDICATIONS: Currently in the hospital include: 1. Amiodarone. 2. Aspirin. 3. Carvedilol. 4. Famotidine. 5. Finasteride. 6. Furosemide. 7. Melatonin. 8. Tamsulosin. REVIEW OF SYSTEMS: Negative x10 systems reviewed except as stated in the history of present illness. PHYSICAL EXAMINATION: VITAL SIGNS: Pulse 58, blood pressure 125/77. GENERAL: He is in no acute distress. Alert and oriented x3. EYES: Have no scleral icterus. Oropharynx is clear without lesions. No cervical or supraclavicular lymphadenopathy. LUNGS: Clear to auscultation bilaterally. HEART: Regular rate and rhythm without murmur. ABDOMEN: Soft, nontender, and nondistended. Bowel sounds are present. EXTREMITIES: No lower extremity edema. IMPRESSION: 1. Hematochezia. He had red blood in the stool back in November when he was on Eliquis. The Eliquis was stopped again now for the bleeding. He has now been back on Eliquis for the last few days with no further overt gastrointestinal bleeding. 2. Atrial fibrillation with rapid ventricular response. Now rate controlled and cardioverted to sinus rhythm. He states that he is supposed to have a pacemaker placed tomorrow. 3. Acute kidney injury, improved. He did come in with a creatinine of 1.59, it is down to 0.97 today. RECOMMENDATIONS: 1. I discussed the option of EGD and colonoscopy to evaluate bleeding. The risk of bleeding on anticoagulation, which could be performed after he recovers from his pacemaker placement. He states that he would rather come back and get that done as an outpatient. 2. He can therefore follow up in GI clinic in 2-4 weeks at which point we can schedule an outpatient colonoscopy and EGD to be done at the hospital. He is not a candidate for procedure in the office due to multiple comorbidities. 3. He will call to schedule followup when he is ready. I will sign off for now. Please call if GI can be of assistance. Job ID: [id number]
[2020-04-03 04:33] LABS: #Basophils 0.1 thou/uL (0.0-0.2); #Eosinphils 0.2 thou/uL (0.0-0.7); #Lymphocytes 1.5 thou/uL (1.20-3.40); #Monocytes 0.6 thou/uL (0.11-0.59); #Neutrophils 3.3 thou/uL (1.40-6.50); %Basophils 1.1 % (0.0-1.0); %Eosinophils 4.2 % (0.0-10.0); %Lymphocytes 26.3 % (21.0-51.0); %Monocytes 11.2 % (0.0-10.0); %Neutrophils 57.3 % (42.0-75.0); Hemoglobin 14.1 g/dL (14.0-18.0); Mean Corpuscular HGB CONC 33.3 g/dL (32.0-36.0); Mean Corpuscular Hemoglobin 33.1 pg (27.0-31.0); Mean Corpuscular Volume 99.5 fL (78.0-98.0); Mean Platelet Volume 8.1 fL (7.4-10.4); Platelet Count 137 thou/uL (130-400); RBC Distribution Width 14.1 % (11.5-14.5); Red Blood Cell (RBC) Count 4.25 mill/uL (4.70-6.10); White Blood Cell (WBC) Count 5.7 thou/uL (4.8-10.8)
[2020-04-03 04:50] LABS: Anion Gap 12 mmol/L (10-20); BUN (Urea Nitrogen) 21 mg/dL (8.4-25.7); Calc. Creatinine Clearance 78 mL/min (70-130); Calcium 8.6 mg/dL (7.8-10.44); Carbon Dioxide 28 mmol/L (23-31); Chloride 102 mmol/L (98-107); Estimated GFR-MDRD 68; Glucose 87 mg/dL (83-110); Potassium 3.7 mmol/L (3.5-5.1); Sodium 138 mmol/L (136-145)
[2020-04-03] MEDS ORDERED: Vancomycin 1 GM/200 ML BAG ONE (07:14)
[2020-04-03] MEDS ORDERED: Gentamicin 80 MG/2 ML VIAL ONE (07:27)
[2020-04-03] MEDS ORDERED: Midazolam HCl 2 mg/2 ml Vial ONE (07:32)
--- NOTE | 2020-04-03 08:15 | PDOC.CPN ---
- Subjective Date: 04/03/20 Time: 07:00 - Review of Systems General: denies: fever/chills, weight/appetite/sleep changes, night sweats, fatigue Respiratory: denies: cough, congestion, shortness of breath, exercise intolerance Cardiovascular: denies: chest pain, palpitation, edema, paroxysmal nocturnal dyspnea, orthopnea Gastrointestinal: denies: nausea, vomiting, diarrhea, constipation, abd pain, GI bleeding Musculoskeletal: denies: pain, tenderness, stiffness, swelling, arthritis/ arthralgias Neurological: denies: numbness, syncope, seizure, weakness - Objective Allergies/Adverse Reactions: Allergies Allergy/AdvReac Type Severity Reaction Status Date / Time Penicillins Allergy Verified 03/27/20 22:09 Sulfa (Sulfonamide Allergy Verified 03/27/20 22:09 Antibiotics) milk AdvReac stops nose Verified 03/27/20 22:10 up, thick secretions Visit Medications: Current Medications Acetaminophen (Tylenol) 650 mg PO Q4H PRN PRN Reason: Headache/Fever/Mild Pain (1-3) Amiodarone HCl (Cordarone) 200 mg PO TID [facility] Last Admin: 04/02/20 20:03 Dose: 200 mg Aspirin (Aspirin Chewable) 81 mg PO DAILY [facility] Last Admin: 04/02/20 08:20 Dose: 81 mg Bisacodyl (Dulcolax) 10 mg [place] DAILYPRN PRN PRN Reason: Constipation Calcium Carbonate (Tums) 1,000 mg PO Q4H PRN PRN Reason: Heartburn or Indigestion Carvedilol (Coreg) 12.5 mg PO BID [facility] Last Admin: 04/02/20 20:03 Dose: 12.5 mg Famotidine (Pepcid) 20 mg PO BID [facility] Last Admin: 04/02/20 20:12 Dose: 20 mg Finasteride (Proscar) 5 mg PO HS [facility] Last Admin: 04/02/20 20:12 Dose: 5 mg Furosemide (Lasix) 40 mg PO 0900,1400 [facility] Last Admin: 04/02/20 13:16 Dose: 40 mg Guaifenesin/Dextromethorphan (Robitussin Dm) 15 ml PO Q4H PRN PRN Reason: Cough Melatonin (Melatonin) 6 mg PO 2100 [facility] Last Admin: 04/02/20 20:05 Dose: 6 mg Ondansetron HCl (Zofran) 4 mg IVP Q6H PRN PRN Reason: Nausea/Vomiting Potassium Chloride (K-Dur) 40 meq PO QAM-WM [facility] Last Admin: 04/02/20 08:20 Dose: 40 meq Senna/Docusate Sodium (Senokot S) 2 tab PO BID PRN PRN Reason: Constipation Sodium Chloride (Flush - Normal Saline) 10 ml IVF Q12HR [facility] Last Admin: 04/02/20 20:12 Dose: 10 ml Sodium Chloride (Flush - Normal Saline) 10 ml IVF PRN PRN PRN Reason: Saline Flush Last Admin: 03/28/20 06:09 Dose: 10 ml Sodium Chloride (Flush - Normal Saline) 10 ml IVF Q12HR [facility] Last Admin: 04/02/20 20:14 Dose: Not Given Sodium Chloride (Flush - Normal Saline) 10 ml IVF PRN PRN PRN Reason: Saline Flush Tamsulosin HCl (Flomax) 0.4 mg PO HS [facility] Last Admin: 04/02/20 20:13 Dose: 0.4 mg Vital Signs & Weight: Vital Signs Temp Pulse Resp BP Pulse Ox 04/03/20 07:01 94 L 04/03/20 07:00 98.3 F 54 L 16 134/73 94 L 04/03/20 03:15 97.9 F 54 L 18 115/70 95 Weight 211 lb 3.2 oz - Quality Measures Condition: Atrial Fibrillation/Flutter (hx or current) CV meds: Beta Manuel: Yes - Physical Exam HEENT: normocephaly Neck: no JVD/HJR Cardiac: regular rate and rhythm Lungs: clear to auscultation Neuro: grossly intact Abdomen: unremarkable Extremities: no cyanosis, no clubbing, no edema Musculoskeletal: normal range of motion - Labs Result Diagrams: 04/03/20 03:52 04/03/20 03:52 Troponin/CKMB Troponin I 0.020 ng/mL (< 0.028) 03/27/20 15:05 - EKG Interpretation EKG shows: sinus rhythm - Assessment/Plan Assessment/Plan: 1. Recurrent AF with RVR with s/p SUELLEN/DCCV on 04/01/2020 - Amiodarone 200mg TID taper was started in PM on 04/01/2020; remians in SR; On Eliquis 2.5mg BID;held for 2 days in anticipation of pacemaker. 2. Acute on chronic diastolic CHF 3. SSS (oupt PM placement was on hold due to COVID 19 epidemic) - stable HR; PM placement today. 4. HTN - stable 5. FLOR - improved 6. Hx GIB on Eliquis - On Eliquis 2.5mg BID since 03/29/2020 with Hgb level WNL. except held for 2 days. Will request GI consult for possible colonoscopy as pt. will need OAC. In the future he may need a Watchman device that will require 3 months of OAC. * Echo in 10/2019 with EF 65%, moderate to severe left atrial enlargement of 5 cm, mild to moderate MR, mild TR. * Nuclear stress test from 10/26/2019 reveals LVEF of 60%. No ischemia or scar.
[2020-04-03] MEDS ORDERED: Acetaminophen/Codeine 30-300mg Tablet PO PRN (08:28)
[2020-04-03] MEDS: Famotidine 20 MG TAB PO SCH (09:20)
[2020-04-03] MEDS: Aspirin Chewable 81 MG TAB PO SCH (09:21)
[2020-04-03] MEDS: Potassium Chloride 20 MEQ TAB PO SCH (09:21)
[2020-04-03] MEDS: Carvedilol 6.25 MG TAB PO SCH (09:21)
[2020-04-03] MEDS: Amiodarone 200 MG TAB PO SCH ×2 (09:22→15:37)
[2020-04-03] MEDS: Furosemide 40 MG TAB PO SCH ×2 (09:22→13:14)
--- NOTE | 2020-04-03 09:38 | RAD ---
EXAM: Single view of the chest HISTORY: Status post pacemaker placement COMPARISON: 03/27/2020 FINDINGS: Single view of the chest shows an enlarged but stable cardiomediastinal silhouette. A left subclavian pacemaker seen with its leads in the right atrium and ventricle. No pneumothorax is seen. Opacity in the right lung base may represent atelectasis or an infiltrate. The bones are unrem arkable. IMPRESSION: 1. Status post pacemaker placement without evidence of complication 2. Right basilar atelectasis versus infiltrate.
--- NOTE | 2020-04-03 10:33 | PDOC.EP ---
- Subjective Date: 04/03/20 Time: 10:32 Interval History: EP follow up for AF, OAC management, and tachy-jeromy syndrome Feels well. had PPM placed with cardiology. Resting in bed but easily awoke. Voices no complaints today, just feels tired and eager to go home - Review of Systems Respiratory: denies: cough, shortness of breath, wheezing Cardiology: denies: chest pain, light headedness, passing out, pleuritic pain Gastrointestinal: denies: abdominal pain, constipation, diarrhea Musculoskeletal: denies: unstable gait, falls, neck pain - Objective Allergies/Adverse Reactions: Allergies Allergy/AdvReac Type Severity Reaction Status Date / Time Penicillins Allergy Verified 03/27/20 22:09 Sulfa (Sulfonamide Allergy Verified 03/27/20 22:09 Antibiotics) milk AdvReac stops nose Verified 03/27/20 22:10 up, thick secretions Current Medications Acetaminophen (Tylenol) 650 mg PO Q4H PRN PRN Reason: Headache/Fever/Mild Pain (1-3) Acetaminophen/Codeine Phosphate (Tylenol #3) 1 tab PO Q4H PRN PRN Reason: Mild Pain (1-3) Amiodarone HCl (Cordarone) 200 mg PO TID [facility] Last Admin: 04/03/20 09:22 Dose: 200 mg Apixaban (Eliquis) 2.5 mg PO BID [facility] Aspirin (Aspirin Chewable) 81 mg PO DAILY [facility] Last Admin: 04/03/20 09:21 Dose: 81 mg Bisacodyl (Dulcolax) 10 mg [place] DAILYPRN PRN PRN Reason: Constipation Calcium Carbonate (Tums) 1,000 mg PO Q4H PRN PRN Reason: Heartburn or Indigestion Carvedilol (Coreg) 12.5 mg PO BID [facility] Last Admin: 04/03/20 09:21 Dose: 12.5 mg Famotidine (Pepcid) 20 mg PO BID [facility] Last Admin: 04/03/20 09:20 Dose: Not Given Finasteride (Proscar) 5 mg PO HS [facility] Last Admin: 04/02/20 20:12 Dose: 5 mg Furosemide (Lasix) 40 mg PO 0900,1400 [facility] Last Admin: 04/03/20 09:22 Dose: 40 mg Guaifenesin/Dextromethorphan (Robitussin Dm) 15 ml PO Q4H PRN PRN Reason: Cough Melatonin (Melatonin) 6 mg PO 2100 [facility] Last Admin: 04/02/20 20:05 Dose: 6 mg Ondansetron HCl (Zofran) 4 mg IVP Q6H PRN PRN Reason: Nausea/Vomiting Potassium Chloride (K-Dur) 40 meq PO QAM-WM [facility] Last Admin: 04/03/20 09:21 Dose: 40 meq Senna/Docusate Sodium (Senokot S) 2 tab PO BID PRN PRN Reason: Constipation Sodium Chloride (Flush - Normal Saline) 10 ml IVF Q12HR [facility] Last Admin: 04/03/20 09:25 Dose: 10 ml Sodium Chloride (Flush - Normal Saline) 10 ml IVF PRN PRN PRN Reason: Saline Flush Tamsulosin HCl (Flomax) 0.4 mg PO HS [facility] Last Admin: 04/02/20 20:13 Dose: 0.4 mg Vital Signs & Weight: Vital Signs Temp Pulse Resp BP BP Pulse Ox 04/03/20 09:21 130/76 04/03/20 07:01 94 L 04/03/20 07:00 98.3 F 54 L 16 134/73 94 L 04/03/20 03:15 97.9 F 54 L 18 115/70 95 Weight 211 lb 3.2 oz I/O: I/O 04/02/20 04/03/20 04/04/20 06:59 06:59 06:59 Intake Total 1091.7 1260 Output Total 600 1250 Balance 491.7 10 - Quality Measures Condition: Atrial Fibrillation/Flutter (hx or current) CV meds: Eliquis: Yes (low dose) - Physical Exam General: alert & oriented x3, appears well, no apparent distress, speech clear, affect appropriate HEENT: mucus membranes moist, normocephaly Neck: supple neck, midline trachea, no thromegaly Cardiology: regular rate and rhythm, no murmur. negative: systolic murmur Lungs: clear to auscultation, normal breath sounds, no rales Neurology: cranial nerve 2-12 intact, grossly intact, sensory function intact Abdomen: unremarkable, active bowel sounds, no hepatosplenomegaly - Labs Result Diagrams: 04/03/20 03:52 04/03/20 03:52 - EKG Interpretation EKG Method: Telemetry EKG shows: Sinus rhythm - Assessment/Plan Assessment/Plan: PROBLEMS: 1. Paroxysmal atrial fibrillation with rapid ventricular rate. a. Recurrent episodes of atrial fibrillation since 2016 and current admission with atrial fibrillation with rapid rate. 2. Sinus node dysfunction with tendency for bradycardia. 3. Acute on chronic diastolic heart failure exacerbation. a. A 2D echo from 11/05/2019 showed LVEF 65%, moderate to severe left atrial enlargement of 5 cm, mild to moderate MR, mild TR. b. Nuclear stress test from 10/26/2019 reveals LVEF of 60%. No ischemia or scar. 4. History of non-ST elevation myocardial infarction type 2 with RVR in the past. 5. CHADS score of 2 due to age, treated with Eliquis. a. GI bleed related to discontinuation of Eliquis in the past. history of + guiac in Nov 2019 6. History of varicose veins. 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 Eliquis on hold with PPM implant with cardiology. GI consulted yesterday and recommended endoscopy, which is to be arranged as OP in 2-4 weeks. terminal supervisor OAC is indicated. With his hx of GIB he is a poor candidate for this but may be appropriate for short term therapy surrounding UMESH closure with WM. This could be pursued in the future if no correctable GIB source is found during GI evaluation. Amiodarone taper: 200mg TID x 7days 200mg BID x 7 days 200mg Daily thereafter. 6 week follow up requested, after GI endoscopy is completed, to discuss findings and potential WM.
--- NOTE | 2020-04-03 10:55 | CCLSPC ---
INDICATION FOR PROCEDURE: A 79-year-old patient with tachy/jeromy syndrome with occasional episodes of atrial fibrillation, but remaining in sinus rhythm at this time, and also significant bradycardia associated with medication use for his atrial fibrillation. He was advised to undergo dual chamber pacemaker insertion. PROCEDURE IN DETAIL: He was taken to the cardiac photonic laboratory technician where he underwent the procedure today without difficulties or complications. A full dictated note can be found in the chart. He was implanted with a dual-chamber MRI compatible device from [employer], an [place] XT with two screw-in leads, one in the atrium, one in the ventricle. The pacemaker was set with the upper rate of 120, the lower rate was set at 70. There were no difficulties or complications encountered. The patient tolerated the procedure well. He was given 1 mg of IV versed for conscious sedation. Throughout the procedure, remained stable. There were no complications or difficulties. He was monitored by an independent observer present for heart rate, blood pressure, and O2 saturation throughout the procedure. Job ID: [id number]
--- NOTE | 2020-04-03 14:56 | RAD ---
Chest AP view INDICATION: Status post cardiac device placement COMPARISON: Prior examination performed on April 03, 2020 9:25 AM FINDINGS: Lungs: There is some mild improvement of the bilateral perihilar airspace opacities. Some mild resid ual opacities remain within the infrahilar region. Cardiac silhouette: Mild cardiomegaly is stable appearing. Dual-lead pacemaker overlies left chest w all. Pulmonary vasculature: Normal Pleural spaces: There is decrease in size of the small bilateral pleural effusions Upper abdomen: No abnormality seen. Osseous structures: No acute osseous abnormality. Additional findings: None. IMPRESSION: Improvement in the perihilar airspace opacities particularly in the right infrahilar region likely re flecting improved airspace edema. There is also decrease in size of the small bilateral pleural effusions. Mild cardiomegaly persists. Dual-lead pacemaker does not appear appreciably changed in pos ition. No pneumothorax is demonstrated.
[2020-04-03 15:37] VITALS: BP 114/68; TEMP 98.5
--- NOTE | 2020-04-03 19:33 | EKG ---
Test Reason : Blood Pressure : / mmHG Vent. Rate : 070 BPM Atrial Rate : 070 BPM P-R Int : 158 ms QRS Dur : 090 ms QT Int : 426 ms P-R-T Axes : 069 -01 024 degrees QTc Int : 460 ms Electronic atrial pacemaker Nonspecific T wave abnormality Prolonged QT Abnormal ECG When compared with ECG of 01-APR-2020 12:38, Electronic atrial pacemaker has replaced Sinus rhythm QT has lengthened Confirmed by DR. Brannon ROSS ([id number]) on 04/03/2020 7:33:06 PM Referred By: LÓPEZ Confirmed By:DR. Brannon ROSS
--- NOTE | 2020-04-04 14:12 | DIS ---
DATE OF ADMISSION: 03/27/2020 DATE OF DISCHARGE: 04/03/2020 DISCHARGE DISPOSITION: Home. The patient declined home health care. FOLLOWUP: 1. Follow up with Penny Avery next week as scheduled. 2. Follow up with Cardiology, Gastroenterology, and Electrophysiology as scheduled. 3. Outpatient cardiac rehab. DISCHARGE MEDICATIONS: 1. Amiodarone taper. 2. Eliquis 2.5 mg b.i.d. 3. Aspirin 81 mg daily. 4. Coreg 12.5 mg b.i.d. 5. Lasix 40 mg daily. 6. Protonix 40 mg daily. 7. Flomax 0.4 mg at bedtime. 8. Potassium 20 mEq daily. 9. Finasteride 5 mg at bedtime. 10. Vitamin C 500 mg daily. PHYSICAL EXAMINATION: GENERAL: The patient was seen and examined on the day of discharge. Denies any new complaints. VITAL SIGNS: Showed temperature 98.5, pulse of 83, respirations of 16, blood pressure of 114/68 and 121/66. BRIEF HOSPITAL COURSE: The patient is a 79-year-old male with chronic atrial fibrillation, diastolic heart failure, presented to the emergency room with shortness of breath along with bilateral lower extremity swelling. His workup was consistent with atrial fibrillation with rapid ventricular response along with congestive heart failure exacerbation. He was started on IV diuretics with Cardizem drip. The patient was monitored on telemetry unit. He was evaluated by Cardiology and Electrophysiology. He underwent SUELLEN cardioversion, after which he converted to sinus rhythm. He has been started on low-dose anticoagulation. He was evaluated by Gastroenterology Service as well. He will follow up with [facility] as outpatient for possible endoscopy. The patient is in sinus rhythm and has been cleared by consultants for discharge. FINAL DIAGNOSES: 1. Atrial fibrillation with rapid ventricular response, status post SUELLEN cardioversion. 2. Acute on chronic diastolic heart failure. 3. Sick sinus syndrome, status post pacemaker placement this admission. 4. Chronic anticoagulation with low-dose Eliquis due to gastrointestinal bleeding. 5. Acute kidney injury with hypokalemia, improved. 6. Benign prostatic hypertrophy. 7. Obesity with a BMI of 30.6. 8. Chronic kidney disease, stage 2. 9. Chronic anemia, suspected due to nutritional deficiency. 10. Significant labs, potassium 3.4. 11. Creatinine on admission was 1.59, at discharge was 1.05. 12. The patient understands the above plan of care. Job ID: [id number]
[2020-04-04] MEDS ORDERED: Apixaban 2.5 MG TAB PO SCH (21:00)
--- NOTE | 2020-04-05 14:48 | EKG ---
Test Reason : POST CARDIOVERSION Blood Pressure : / mmHG Vent. Rate : 049 BPM Atrial Rate : 049 BPM P-R Int : 190 ms QRS Dur : 088 ms QT Int : 456 ms P-R-T Axes : 079 -05 032 degrees QTc Int : 411 ms Marked sinus bradycardia Abnormal ECG When compared with ECG of 27-MAR-2020 15:55, (Unconfirmed) Sinus rhythm has replaced Atrial fibrillation Vent. rate has decreased BY 106 BPM Criteria for Anterior infarct are no longer Present Nonspecific T wave abnormality no longer evident in Lateral leads Confirmed by DR. Brannon ROSS ([id number]) on 04/01/2020 2:21:02 PM Referred By: LÓPEZ Confirmed By:DR. Brannon ROSS
--- NOTE | 2020-04-06 13:16 | EKG ---
Test Reason : Blood Pressure : / mmHG Vent. Rate : 155 BPM Atrial Rate : 250 BPM P-R Int : 000 ms QRS Dur : 078 ms QT Int : 244 ms P-R-T Axes : 000 -04 063 degrees QTc Int : 392 ms Atrial fibrillation with rapid ventricular response Abnormal ECG Confirmed by SATISH NICOLAS, LORI Alvarado ([id number]), sound editor YOLA SORTO ([id number]) on 04/06/2020 1:16:06 PM Referred By: Confirmed By:LORI COVARRUBIAS MD
== END 2020-04-03 17:10 | disposition home or self-care (01) | DRG 242 ==
LOC: ERS 14:20 → 2NO 17:04 → 3SW 04-01 11:08 → 2NO 04-01 11:13
PROVIDERS: ADMIT Internal Medicine; ATTEND Internal Medicine
PROC: 5A2204Z Restoration of Cardiac Rhythm, Single (ICD-10-PCS; principal; 2020-04-02)
PROC: B24BZZ4 Ultrasonography of Heart with Aorta, Transesophageal (ICD-10-PCS; 2020-04-02)
PROC: 0JH606Z Insertion of Pacemaker, Dual Chamber into Chest Subcutaneous Tissue and Fascia, Open Approach (ICD-10-PCS; 2020-04-03)
PROC: 02H63JZ Insertion of Pacemaker Lead into Right Atrium, Percutaneous Approach (ICD-10-PCS; 2020-04-03)
PROC: 02HK3JZ Insertion of Pacemaker Lead into Right Ventricle, Percutaneous Approach (ICD-10-PCS; 2020-04-03)
DX: I48.0 Paroxysmal atrial fibrillation (principal); I50.33 Acute on chronic diastolic (congestive) heart failure; N17.9 Acute kidney failure, unspecified; I13.0 Hypertensive heart and chronic kidney disease with heart failure and stage 1 through stage 4 chronic kidney disease, or unspecified chronic kidney disease; Z66 Do not resuscitate; I49.5 Sick sinus syndrome; E66.9 Obesity, unspecified; N18.2 Chronic kidney disease, stage 2 (mild); D53.9 Nutritional anemia, unspecified; I08.3 Combined rheumatic disorders of mitral, aortic and tricuspid valves; N40.0 Benign prostatic hyperplasia without lower urinary tract symptoms; E87.6 Hypokalemia; R04.0 Epistaxis; Z88.0 Allergy status to penicillin; Z88.2 Allergy status to sulfonamides; I25.2 Old myocardial infarction; Z68.30 Body mass index [BMI] 30.0-30.9, adult; Z28.21 Immunization not carried out because of patient refusal; Z79.899 Other long term (current) drug therapy
CPT/HCPCS: 33208; 36415; 71045; 80048; 80053; 83735; 83880; 84443; 84484; 85014; 85018; 85025; 85049; 90471; 90670; 92960; 93005; 93010; 93312; 93798; 94760; 96365; 96366; 96375; 96376; 99152; 99153; C1785; C1898; G0009; J1160; J1580; J1650; J1940; J2250; J2704; J3370; J3490

== ENCOUNTER 2020-05-06 07:29 | Outpatient (CLI) | payer MEDICARE, OTHER ==
[2020-05-06 14:04] LABS: #Eosinphils 0.2 thou/uL (0.0-0.7); #Lymphocytes 1.2 thou/uL (1.20-3.40); #Monocytes 0.5 thou/uL (0.11-0.59); %Basophils 0.3 % (0.0-1.0); %Eosinophils 3.5 % (0.0-10.0); %Lymphocytes 20.3 % (21.0-51.0); %Monocytes 8.5 % (0.0-10.0); %Neutrophils 67.4 % (42.0-75.0); Hemoglobin 13.2 g/dL (14.0-18.0); Mean Corpuscular HGB CONC 32.6 g/dL (32.0-36.0); Mean Corpuscular Hemoglobin 32.1 pg (27.0-31.0); Mean Corpuscular Volume 98.4 fL (78.0-98.0); Mean Platelet Volume 7.9 fL (7.4-10.4); Platelet Count 166 thou/uL (130-400); RBC Distribution Width 13.5 % (11.5-14.5); Red Blood Cell (RBC) Count 4.12 mill/uL (4.70-6.10); White Blood Cell (WBC) Count 5.9 thou/uL (4.8-10.8)
[2020-05-06 14:30] LABS: Anion Gap 14 mmol/L (10-20); BUN (Urea Nitrogen) 16 mg/dL (8.4-25.7); Calc. Creatinine Clearance 0 mL/min (70-130); Calcium 8.9 mg/dL (7.8-10.44); Carbon Dioxide 23 mmol/L (23-31); Chloride 106 mmol/L (98-107); Estimated GFR-MDRD 66; Glucose 116 mg/dL (83-110); Potassium 4.3 mmol/L (3.5-5.1); Sodium 139 mmol/L (136-145)
[2020-05-07 12:21] LABS: SARS-CoV-2 MS2 Positive; SARS-CoV-2 N Gene Negative; SARS-CoV-2 S Gene Negative; SARS-CoV-2 orf1ab Negative
== END 2020-05-06 07:30 | disposition home or self-care (01) ==
LOC: LABBT 07:29
PROVIDERS: ATTEND Internal Medicine Cardiovascular Disease
DX: Z01.812 Encounter for preprocedural laboratory examination (principal); Z11.59 Encounter for screening for other viral diseases
CPT/HCPCS: 80048; 85025; U0003; 87635

== ENCOUNTER → 2020-05-10 | Day surgery (SDC) | payer MEDICARE ==
[2020-05-03 11:24] VITALS: BMI 29.9
[~2020-05-10] MED LIST: PROPOFOL 20 ML ONE
--- NOTE | 2020-05-10 17:19 | CCLSPC ---
INDICATION FOR PROCEDURE: A 79-year-old patient who has undergone pacemaker insertion. He has paroxysmal atrial fibrillation. He has gone back into his atrial fibrillation. He was advised to undergo a WATCHMAN device and this is still pending. However, he has had it attempted. He has been on Eliquis for several weeks. I believe he did have some problems also with some GI bleeding, but is now tolerating a dose of 2.5 mg twice a day Eliquis, and we have decided to attempt a cardioversion of his atrial fibrillation back to sinus rhythm. Hopefully, in the near future, he will get the WATCHMAN device placed and eventually he will be able to get off the Eliquis. He was taken to the recovery area, where he underwent short acting propofol, and using one attempt at 200 joules, he was successfully converted back to a normal sinus rhythm. Actually, when the pacemaker was inhibited, the heart rates were in the 30s with sinus rhythm and then he was A sensed, V paced, though majority of them were A paced, VFib. The final evaluation showed that he is A pacing and ventricular sensing. He tolerated the procedure well without difficulties or complications. He was given a short acting propofol for anesthesia. There were no complications or difficulties encountered. If he remains stable, he will be discharged to home and he will follow up with Dr. Cardenas. Job ID: [id number]
--- NOTE | 2020-05-12 21:43 | DIS ---
DATE OF ADMISSION: 05/10/2020 DATE OF DISCHARGE: 05/10/2020 ADMISSION DIAGNOSES: He was seen in the outpatient facility today, where he underwent electrocardioversion due to atrial fibrillation. His diagnosis is atrial fibrillation and also bradycardia. He has recently had a pacemaker insertion. He has had a [id number] elevation type 2 myocardial infarction. He has had a history of varicose veins. He has had a tonsillectomy and hernia repair. DISCHARGE DIAGNOSES: He was seen in the outpatient facility today, where he underwent electrocardioversion due to atrial fibrillation. His diagnosis is atrial fibrillation and also bradycardia. He has recently had a pacemaker insertion. He has had a [id number]-AJ-[id number] elevation type 2 myocardial infarction. He has had a history of varicose veins. He has had a tonsillectomy and hernia repair. DISCHARGE MEDICATIONS: Will be the same as his admission medications, these include; 1. Amiodarone 200 mg twice a day. 2. He is on Eliquis 2.5 mg b.i.d. 3. Coreg 12.5 mg b.i.d. 4. Lasix 40 mg daily. 5. Protonix 40 mg a day. 6. Potassium KCl 20 mEq once a day. 7. Tamsulosin 0.4 mg q.p.m. FOLLOWUP: His followup would be with the inspector motor vehicles as per their directions. I will see the patient back in my office in 1 to 2 months. PROCEDURE IN HOSPITAL: Include electrocardioversion of atrial fibrillation back to sinus rhythm. HOSPITAL COURSE: This is a very pleasant elderly gentleman, who is now 79 years old, recently underwent pacemaker insertion. He had been doing relatively well, but then converted back to atrial fibrillation, has a rapid ventricular response at times, but was placed on amiodarone and also had been on Eliquis. He was advised to undergo a cardioversion for atrial fibrillation back to sinus rhythm. He has actually been on Eliquis 5 mg b.i.d., which then decreased down to 2.5 mg b.i.d. after he developed some GI bleeding. He seems to be tolerating the medicine quite well, has no further GI bleed. He was taken to the area, where he underwent electrical cardioversion of the atrial fibrillation back to sinus rhythm with one attempt at 200 joules. The pacemaker was then reinterrogated and was found to be stable. He then was noted to have atrial pacing and ventricular sensing. If he remains stable, will be discharged home in the next couple of hours and we will see him back in the office as noted above. Job ID: [id number]
== END ==
LOC: SDC 09:16
PROVIDERS: ATTEND Internal Medicine Cardiovascular Disease
PROC: 5A2204Z Restoration of Cardiac Rhythm, Single (ICD-10-PCS; principal; 2020-05-10)
DX: I48.0 Paroxysmal atrial fibrillation (principal); R00.1 Bradycardia, unspecified; I25.2 Old myocardial infarction; I34.0 Nonrheumatic mitral (valve) insufficiency; Z79.01 Long term (current) use of anticoagulants; Z79.899 Other long term (current) drug therapy; Z88.0 Allergy status to penicillin; Z88.2 Allergy status to sulfonamides; Z91.011 Allergy to milk products; Z91.030 Bee allergy status; Z95.0 Presence of cardiac pacemaker
CPT/HCPCS: 92960; 93005; 93010; J2704

== ENCOUNTER 2020-08-28 08:38 | Outpatient (CLI) | payer MEDICARE ==
--- NOTE | 2020-08-28 10:38 | CT ---
EXAM: CT angiogram thorax with and without IV contrast and 3-D reconstruction PROVIDED CLINICAL HISTORY: Atrial fibrillation. Patient had a watchman device placed on 09/06/2020. COMPARISON: None FINDINGS: Due to timing of the contrast bolus, majority of the opacification is seen in the pulmonary arteries. There is opacification of the left atrium and left ventricle, but to a much lesser extent. A watchman device is present within the left atrial appendage. Although the left atrial appendage does not enhance to a similar degree to the left atrium, there is evidence of very subtle enhancement in the left atrial appendage which suggests incomplete occlusion, although near occlusion, given differe nces in opacification of left atrial appendage related to the left atrium. Dual lead left subclavian cardiac pacemaking device is noted in place. The heart is mildly enlarged. Small pericardial effusion is present. Vascular calcifications are seen in the thoracic aorta as well as involving the coronary arteries. Mi nimal calcifications are seen in the region of the mitral valve annulus. No filling defects are seen within the visualized pulmonary arteries. The more peripheral pulmonary a rteries are not imaged due to this exam being tailored for evaluation of the heart. Small amount of soft tissue density is seen in each hilar region with increase in number of mediastin al lymph nodes. Partial visualization of very small bilateral pleural effusions. Degenerative changes are seen in the thoracic spine with calcified dictation anterior longitudinal li gament. A wedge-shaped compression fracture is seen involving what is thought to be T12 vertebral body. This was seen on chest x-ray in 2016. IMPRESSION: 1. Left atrial appendage watchman device in place. While there is near occlusion of the left atrial a ppendage, there is subtle enhancement suggesting incomplete occlusion of the left atrial appendage at this time. Follow-up evaluation is recommended. 2. Mild cardiomegaly with small pericardial effusion. 3. Minimal bilateral pleural effusions. 4. Vascular calcifications. 5. Nonspecific mediastinal and hilar lymphadenopathy.
[2020-08-28] MEDS ORDERED: Iopamidol 370 76% 100 ML VIAL ONE (14:26)
== END 2020-08-28 08:39 | disposition home or self-care (01) ==
LOC: CT 08:38
PROVIDERS: ATTEND Internal Medicine Cardiovascular Disease
DX: I48.91 Unspecified atrial fibrillation (principal); R06.02 Shortness of breath; I51.7 Cardiomegaly; I31.3 Pericardial effusion (noninflammatory); J90 Pleural effusion, not elsewhere classified; I70.90 Unspecified atherosclerosis; R59.0 Localized enlarged lymph nodes
CPT/HCPCS: 36415; 71275; 82565; 84520; Q9967

== ENCOUNTER 2021-11-21 19:50 | Inpatient (IN) | payer MEDICARE ==
[2021-11-21] MEDS ORDERED: Adenosine 6 MG/2 ML VIAL ONE (19:57)
[2021-11-21] MEDS ORDERED: Magnesium 2 GM/50 ML BAG (IN WATER) ONE (20:02)
[2021-11-21] MEDS ORDERED: Diltiazem 125 MG/25 ML ONE (20:17)
[2021-11-21 20:27] LABS: #Lymphocytes 1.9 thou/uL (1.20-3.40); %Basophils 0.2 % (0.0-1.0); %Eosinophils 0.2 % (0.0-10.0); %Lymphocytes 15.6 % (21.0-51.0); %Monocytes 8.1 % (0.0-10.0); %Neutrophils 75.9 % (42.0-75.0); Hemoglobin 14.7 g/dL (14.0-18.0); Mean Corpuscular HGB CONC 33.8 g/dL (32.0-36.0); Mean Corpuscular Hemoglobin 33.2 pg (27.0-31.0); Mean Corpuscular Volume 98.2 fL (78.0-98.0); Mean Platelet Volume 7.7 fL (7.4-10.4); Platelet Count 176 thou/uL (130-400); RBC Distribution Width 12.7 % (11.5-14.5); Red Blood Cell (RBC) Count 4.42 mill/uL (4.70-6.10); White Blood Cell (WBC) Count 11.8 thou/uL (4.8-10.8)
[2021-11-21 20:39] LABS: INR-International Normal Ratio 1.1; PTT 32.4 sec (22.9-36.1); Prothrombin Time 14.6 sec (12.0-14.7)
[2021-11-21 20:48] LABS: ALT (SGPT) 19 U/L (8-55); AST (SGOT) 16 U/L (5-34); Albumin 4.2 g/dL (3.4-4.8); Alkaline Phosphatase 75 U/L (40-110); Anion Gap 14 mmol/L (10-20); BUN (Urea Nitrogen) 16 mg/dL (8.4-25.7); Bilirubin, Total 1.6 mg/dL (0.2-1.2); Calc. Creatinine Clearance 0 mL/min (70-130); Calcium 9.3 mg/dL (7.8-10.44); Carbon Dioxide 27 mmol/L (23-31); Chloride 101 mmol/L (98-107); Globulin 3.5 g/dL (2.4-3.5); Glucose 120 mg/dL (83-110); Magnesium 2.1 mg/dL (1.6-2.6); Protein, Total 7.7 g/dL (5.8-8.1); Sodium 138 mmol/L (136-145)
[2021-11-21] MEDS ORDERED: Furosemide 40 MG/4 ML VIAL ONE (22:45)
[2021-11-21] MEDS ORDERED: Diltiazem HCl 125 MG, Admixture Fee 1 EACH in Sodium Chloride 0.9% 100 ML IVPB SCH (23:00)
[2021-11-21] MEDS ORDERED: Digoxin 0.5 MG/2 ML AMP ONE (23:03)
[2021-11-21 23:29] LABS: Bilirubin Negative (Negative); Blood, Urine Negative (Negative); Clarity Clear (Clear); Glucose, Urine (Dipstick) Normal (Negative); Ketone, Urine Negative (Negative); Leukocyte Negative Leu/uL (Negative); Nitrite Negative (Negative); Protein, Urine (Dipstick) Negative (Neg-Trace); Specific Gravity, Urine 1.009 (1.002-1.036); Urobilinogen Normal mg/dL (Less than 2); pH, Urine 5.5 (5.0-9.0)
[2021-11-21 23:49] LABS: Troponin I 0.052 ng/mL (< 0.028)
[2021-11-22 00:11] VITALS: BMI 32.1
[2021-11-22] MEDS ORDERED: Meropenem 1 GM in Sodium Chloride 0.9% 100 ML IVPB SCH (00:23)
[2021-11-22] MEDS ORDERED: Acetaminophen 650 MG Suppository PR PRN (00:34)
[2021-11-22] MEDS ORDERED: Ondansetron PF 4 MG/2 ML Vial IVP PRN (00:34)
[2021-11-22] MEDS ORDERED: Acetaminophen 325 MG TAB PO PRN (00:34)
[2021-11-22] MEDS ORDERED: Ondansetron ODT 4 MG TAB PO PRN (00:34)
[2021-11-22 02:13] LABS: #Basophils 0.1 thou/uL (0.0-0.2); #Monocytes 0.9 thou/uL (0.11-0.59); #Neutrophils 6.3 thou/uL (1.40-6.50); %Eosinophils 0.2 % (0.0-10.0); %Lymphocytes 21.7 % (21.0-51.0); %Monocytes 9.9 % (0.0-10.0); %Neutrophils 67.1 % (42.0-75.0); Mean Corpuscular HGB CONC 33.8 g/dL (32.0-36.0); Mean Corpuscular Hemoglobin 33.1 pg (27.0-31.0); Mean Corpuscular Volume 97.8 fL (78.0-98.0); Mean Platelet Volume 7.2 fL (7.4-10.4); Platelet Count 160 thou/uL (130-400); RBC Distribution Width 12.6 % (11.5-14.5); Red Blood Cell (RBC) Count 4.22 mill/uL (4.70-6.10); White Blood Cell (WBC) Count 9.3 thou/uL (4.8-10.8)
[2021-11-22 02:36] LABS: Troponin I 0.058 ng/mL (< 0.028)
[2021-11-22 02:41] LABS: Anion Gap 13 mmol/L (10-20); BUN (Urea Nitrogen) 15 mg/dL (8.4-25.7); Calc. Creatinine Clearance 82 mL/min (70-130); Calcium 8.8 mg/dL (7.8-10.44); Carbon Dioxide 24 mmol/L (23-31); Chloride 105 mmol/L (98-107); Glucose 97 mg/dL (83-110); Potassium 3.7 mmol/L (3.5-5.1); Sodium 138 mmol/L (136-145)
[2021-11-22 08:38] LABS: SARS-CoV-2 NAA Rapid Test Not Detected (NotDetected)
[2021-11-22] MEDS: Enoxaparin Sodium 40 MG/0.4 ML SYRINGE SC SCH (09:36)
[2021-11-22] MEDS ORDERED: Iopamidol-370 76% 500 ML 1 ML ONE (12:07)
[2021-11-22] MEDS ORDERED: Furosemide 40 MG TAB PO SCH (14:30)
[2021-11-22] MEDS ORDERED: Tamsulosin HCl 0.4 MG CAP PO SCH (21:00)
[2021-11-22] MEDS ORDERED: Finasteride 5 MG TAB PO SCH (21:00)
[2021-11-22] MEDS: Carvedilol 25 MG TAB PO SCH (21:38)
[2021-11-23 05:10] LABS: #Eosinphils 0.2 thou/uL (0.0-0.7); #Lymphocytes 1.5 thou/uL (1.20-3.40); #Monocytes 0.8 thou/uL (0.11-0.59); #Neutrophils 4.9 thou/uL (1.40-6.50); %Basophils 0.3 % (0.0-1.0); %Eosinophils 2.5 % (0.0-10.0); %Lymphocytes 19.8 % (21.0-51.0); %Monocytes 10.2 % (0.0-10.0); %Neutrophils 67.3 % (42.0-75.0); Hemoglobin 12.3 g/dL (14.0-18.0); Mean Corpuscular Hemoglobin 34.6 pg (27.0-31.0); Mean Corpuscular Volume 98.8 fL (78.0-98.0); Mean Platelet Volume 7.7 fL (7.4-10.4); Platelet Count 149 thou/uL (130-400); RBC Distribution Width 12.3 % (11.5-14.5); Red Blood Cell (RBC) Count 3.57 mill/uL (4.70-6.10); White Blood Cell (WBC) Count 7.4 thou/uL (4.8-10.8)
[2021-11-23 05:34] LABS: Anion Gap 11 mmol/L (10-20); BUN (Urea Nitrogen) 18 mg/dL (8.4-25.7); Calc. Creatinine Clearance 82 mL/min (70-130); Calcium 8.4 mg/dL (7.8-10.44); Carbon Dioxide 28 mmol/L (23-31); Chloride 103 mmol/L (98-107); Glucose 79 mg/dL (83-110); Potassium 3.6 mmol/L (3.5-5.1); Sodium 138 mmol/L (136-145)
[2021-11-23] MEDS ORDERED: Furosemide 40 MG TAB PO SCH (09:00)
[2021-11-23] MEDS: Carvedilol 25 MG TAB PO SCH (09:58)
[2021-11-23] MEDS: Enoxaparin Sodium 40 MG/0.4 ML SYRINGE SC SCH (09:58)
[2021-11-23 11:30] VITALS: BP 122/70; TEMP 98.1
== END 2021-11-23 12:50 | disposition home or self-care (01) | DRG 291 ==
LOC: ERS 19:50 → IMCU/EMU 22:48 → 2NO 11-22 18:29
PROVIDERS: ADMIT Student in an Organized Health Care Education/Training Program; ATTEND Internal Medicine
PROC: 4B02XSZ Measurement of Cardiac Pacemaker, External Approach (ICD-10-PCS; principal; 2021-11-22)
DX: I11.0 Hypertensive heart disease with heart failure (principal); I50.33 Acute on chronic diastolic (congestive) heart failure; I48.92 Unspecified atrial flutter; I24.8 Other forms of acute ischemic heart disease; I47.1 Supraventricular tachycardia; Z20.822 Contact with and (suspected) exposure to COVID-19; I49.5 Sick sinus syndrome; N40.0 Benign prostatic hyperplasia without lower urinary tract symptoms; R91.1 Solitary pulmonary nodule; I48.0 Paroxysmal atrial fibrillation; D72.829 Elevated white blood cell count, unspecified; I08.1 Rheumatic disorders of both mitral and tricuspid valves; R29.6 Repeated falls; Z91.81 History of falling; Z90.89 Acquired absence of other organs; Z95.818 Presence of other cardiac implants and grafts; Z95.0 Presence of cardiac pacemaker; Z88.0 Allergy status to penicillin; Z88.2 Allergy status to sulfonamides; Z91.014 Allergy to mammalian meats; Z91.011 Allergy to milk products; Z79.899 Other long term (current) drug therapy; Z98.890 Other specified postprocedural states
CPT/HCPCS: 36415; 71045; 71275; 80048; 80053; 81003; 82553; 83735; 83880; 84443; 84484; 85025; 85610; 85730; 93005; 93306; J0153; J1160; J1650; J1940; J3475; J3490; Q9967; U0002

== ENCOUNTER 2022-07-21 19:52 | Inpatient (IN) | payer MEDICARE ==
[2022-07-21] MEDS ORDERED: Diltiazem 125 MG/25 ML ONE ×2 (20:17→20:24)
[2022-07-21 20:28] LABS: #Eosinphils 0.2 thou/uL (0.0-0.7); #Lymphocytes 1.9 thou/uL (1.20-3.40); #Monocytes 0.5 thou/uL (0.11-0.59); #Neutrophils 7.7 thou/uL (1.40-6.50); %Basophils 0.3 % (0.0-1.0); %Eosinophils 1.5 % (0.0-10.0); %Lymphocytes 18.5 % (21.0-51.0); %Monocytes 5.3 % (0.0-10.0); %Neutrophils 74.4 % (42.0-75.0); Hemoglobin 14.5 g/dL (14.0-18.0); Mean Corpuscular HGB CONC 32.7 g/dL (32.0-36.0); Mean Corpuscular Hemoglobin 32.8 pg (27.0-31.0); Mean Platelet Volume 7.4 fL (7.4-10.4); Platelet Count 196 thou/uL (130-400); Red Blood Cell (RBC) Count 4.41 mill/uL (4.70-6.10); White Blood Cell (WBC) Count 10.3 thou/uL (4.8-10.8)
[2022-07-21 21:00] LABS: ALT (SGPT) 25 U/L (8-55); Albumin 4.2 g/dL (3.4-4.8); Alkaline Phosphatase 94 U/L (40-110); Anion Gap 13 mmol/L (10-20); BUN (Urea Nitrogen) 18 mg/dL (8.4-25.7); Bilirubin, Total 0.9 mg/dL (0.2-1.2); Calc. Creatinine Clearance 0 mL/min (70-130); Calcium 9.5 mg/dL (7.8-10.44); Carbon Dioxide 28 mmol/L (23-31); Chloride 100 mmol/L (98-107); Estimated GFR 58; Globulin 3.4 g/dL (2.4-3.5); Glucose 116 mg/dL (83-110); Potassium 3.9 mmol/L (3.5-5.1); Protein, Total 7.6 g/dL (5.8-8.1); Sodium 137 mmol/L (136-145)
[2022-07-21 22:06] LABS: AST (SGOT) 29 U/L (5-34)
[2022-07-21] MEDS ORDERED: Digoxin 0.125 MG TAB ONE (22:15)
[2022-07-21] MEDS ORDERED: Aspirin Chewable 81 MG TAB ONE (22:15)
[2022-07-21] MEDS ORDERED: Fentanyl 100 MCG/2 ML VIAL ONE (22:50)
[2022-07-21 23:42] LABS: Magnesium 2.1 mg/dL (1.6-2.6)
[2022-07-21 23:48] LABS: Troponin I 0.043 ng/mL (< 0.028)
[2022-07-22] MEDS ORDERED: Ondansetron PF 4 MG/2 ML Vial IVP PRN (00:35)
[2022-07-22] MEDS ORDERED: Acetaminophen 325 MG TAB PO PRN (00:35)
[2022-07-22 03:33] LABS: #Eosinphils 0.1 thou/uL (0.0-0.7); #Lymphocytes 1.7 thou/uL (1.20-3.40); #Monocytes 0.6 thou/uL (0.11-0.59); #Neutrophils 6.2 thou/uL (1.40-6.50); %Basophils 0.4 % (0.0-1.0); %Eosinophils 1.5 % (0.0-10.0); %Lymphocytes 19.6 % (21.0-51.0); %Neutrophils 71.6 % (42.0-75.0); Hemoglobin 13.1 g/dL (14.0-18.0); Mean Corpuscular Hemoglobin 33.1 pg (27.0-31.0); Mean Platelet Volume 7.7 fL (7.4-10.4); Platelet Count 151 thou/uL (130-400); RBC Distribution Width 11.9 % (11.5-14.5); Red Blood Cell (RBC) Count 3.95 mill/uL (4.70-6.10); White Blood Cell (WBC) Count 8.6 thou/uL (4.8-10.8)
[2022-07-22 04:05] LABS: Anion Gap 12 mmol/L (10-20); BUN (Urea Nitrogen) 15 mg/dL (8.4-25.7); Calc. Creatinine Clearance 90 mL/min (70-130); Carbon Dioxide 26 mmol/L (23-31); Chloride 105 mmol/L (98-107); Estimated GFR 77; Glucose 93 mg/dL (83-110); Magnesium 2.1 mg/dL (1.6-2.6); Sodium 139 mmol/L (136-145)
[2022-07-22 04:08] LABS: Calcium 8.6 mg/dL (7.8-10.44)
[2022-07-22] MEDS ORDERED: Carvedilol 25 MG TAB PO SCH (08:00)
[2022-07-22] MEDS ORDERED: Enoxaparin Sodium 40 MG/0.4 ML SYRINGE ONE (09:04)
[2022-07-22] MEDS: Enoxaparin Sodium 40 MG/0.4 ML SYRINGE SC SCH (09:06)
[2022-07-22 10:16] LABS: Troponin I 0.043 ng/mL (< 0.028)
[2022-07-22 13:44] VITALS: BMI 32.1
[2022-07-22] MEDS ORDERED: Non-Formulary Item 1 EACH (Carvedilol [Coreg] 12.5 MG Tab) PO SCH (17:00)
[2022-07-22] MEDS: Carvedilol 25 MG TAB PO SCH (17:19)
[2022-07-22] MEDS ORDERED: Tamsulosin HCl 0.4 MG CAP PO SCH (21:00)
[2022-07-22] MEDS ORDERED: Finasteride 5 MG TAB PO SCH (21:00)
[2022-07-23 05:33] LABS: #Eosinphils 0.3 thou/uL (0.0-0.7); #Lymphocytes 1.4 thou/uL (1.20-3.40); #Monocytes 0.6 thou/uL (0.11-0.59); #Neutrophils 3.8 thou/uL (1.40-6.50); %Basophils 0.6 % (0.0-1.0); %Eosinophils 4.2 % (0.0-10.0); %Neutrophils 62.2 % (42.0-75.0); Mean Corpuscular HGB CONC 32.8 g/dL (32.0-36.0); Mean Platelet Volume 7.5 fL (7.4-10.4); Platelet Count 147 thou/uL (130-400); RBC Distribution Width 11.8 % (11.5-14.5); Red Blood Cell (RBC) Count 3.94 mill/uL (4.70-6.10); White Blood Cell (WBC) Count 6.2 thou/uL (4.8-10.8)
[2022-07-23 05:53] LABS: Anion Gap 8 mmol/L (10-20); BUN (Urea Nitrogen) 18 mg/dL (8.4-25.7); Calc. Creatinine Clearance 83 mL/min (70-130); Calcium 8.4 mg/dL (7.8-10.44); Carbon Dioxide 30 mmol/L (23-31); Chloride 105 mmol/L (98-107); Estimated GFR 72; Glucose 91 mg/dL (83-110); Magnesium 2.1 mg/dL (1.6-2.6); Sodium 139 mmol/L (136-145)
[2022-07-23 07:43] VITALS: BP 155/98; TEMP 98.2
[2022-07-23] MEDS: Enoxaparin Sodium 40 MG/0.4 ML SYRINGE SC SCH (08:43)
[2022-07-23] MEDS: Carvedilol 25 MG TAB PO SCH (08:43)
[2022-07-23] MEDS ORDERED: Furosemide 40 MG TAB PO SCH (09:00)
== END 2022-07-23 12:13 | disposition home or self-care (01) | DRG 309 ==
LOC: ERS 19:52 → ERHOLD 22:49 → NEURO 07-22 12:37
PROVIDERS: ADMIT Internal Medicine; ATTEND Nurse Practitioner Acute Care
PROC: 5A2204Z Restoration of Cardiac Rhythm, Single (ICD-10-PCS; principal; 2022-07-21)
DX: I48.91 Unspecified atrial fibrillation (principal); I50.32 Chronic diastolic (congestive) heart failure; N40.0 Benign prostatic hyperplasia without lower urinary tract symptoms; I47.1 Supraventricular tachycardia; I08.2 Rheumatic disorders of both aortic and tricuspid valves; Z20.822 Contact with and (suspected) exposure to COVID-19; I49.5 Sick sinus syndrome; I11.0 Hypertensive heart disease with heart failure; Z88.0 Allergy status to penicillin; Z88.2 Allergy status to sulfonamides; Z91.030 Bee allergy status; Z91.011 Allergy to milk products; Z79.899 Other long term (current) drug therapy; Z95.0 Presence of cardiac pacemaker; Z90.49 Acquired absence of other specified parts of digestive tract
CPT/HCPCS: 36415; 71045; 80048; 80053; 83735; 84443; 84484; 85025; 92960; 93005; 93306; 96365; 96366; 96375; 96376; J1650; J3010; U0003; U0005

== ENCOUNTER 2022-10-19 12:35 | Inpatient (IN) | payer MEDICARE ==
[~2022-10-19 12:35] MED LIST changes: +Iopamidol-370 76% 500 ML 1 ML ONE; -PROPOFOL 20 ML ONE
[2022-10-19 13:03] LABS: #Eosinphils 0.3 thou/uL (0.0-0.7); #Lymphocytes 1.5 thou/uL (1.20-3.40); #Monocytes 0.7 thou/uL (0.11-0.59); #Neutrophils 3.6 thou/uL (1.40-6.50); %Basophils 0.5 % (0.0-1.0); %Eosinophils 4.7 % (0.0-10.0); %Lymphocytes 24.8 % (21.0-51.0); %Monocytes 11.5 % (0.0-10.0); %Neutrophils 58.5 % (42.0-75.0); Mean Corpuscular HGB CONC 34.1 g/dL (32.0-36.0); Mean Corpuscular Hemoglobin 34.1 pg (27.0-31.0); Mean Corpuscular Volume 99.8 fl (78.0-98.0); Mean Platelet Volume 7.9 fL (7.4-10.4); Platelet Count 152 10x3/uL (130-400); RBC Distribution Width 12.2 % (11.5-14.5); Red Blood Cell (RBC) Count 4.11 mill/uL (4.70-6.10); White Blood Cell (WBC) Count 6.2 10x3/uL (4.8-10.8)
[2022-10-19 13:46] LABS: #Eosinphils 0.2 thou/uL (0.0-0.7); #Lymphocytes 1.5 thou/uL (1.20-3.40); #Monocytes 0.6 thou/uL (0.11-0.59); #Neutrophils 3.5 thou/uL (1.40-6.50); %Basophils 0.1 % (0.0-1.0); %Eosinophils 4.2 % (0.0-10.0); %Lymphocytes 25.8 % (21.0-51.0); %Monocytes 10.6 % (0.0-10.0); %Neutrophils 59.3 % (42.0-75.0); Hemoglobin 13.2 g/dL (14.0-18.0); Mean Corpuscular HGB CONC 33.5 g/dL (32.0-36.0); Mean Corpuscular Hemoglobin 33.7 pg (27.0-31.0); Mean Platelet Volume 7.3 fL (7.4-10.4); Platelet Count 172 10x3/uL (130-400); Red Blood Cell (RBC) Count 3.92 mill/uL (4.70-6.10); White Blood Cell (WBC) Count 5.9 10x3/uL (4.8-10.8)
[2022-10-19 13:57] LABS: INR-International Normal Ratio 1.1; Prothrombin Time 14.7 sec (12.0-14.7)
[2022-10-19 13:58] LABS: PTT 41.7 sec (22.9-36.1)
[2022-10-19 14:07] LABS: ALT (SGPT) 17 U/L (8-55); AST (SGOT) 18 U/L (5-34); Albumin 3.6 g/dL (3.4-4.8); Alkaline Phosphatase 87 U/L (40-110); Anion Gap 11 mmol/L (10-20); BUN (Urea Nitrogen) 11 mg/dL (8.4-25.7); Bilirubin, Total 0.8 mg/dL (0.2-1.2); Calc. Creatinine Clearance 0 mL/min (70-130); Calcium 8.9 mg/dL (7.8-10.44); Carbon Dioxide 27 mmol/L (23-31); Chloride 104 mmol/L (98-107); Estimated GFR 74; Globulin 3.3 g/dL (2.4-3.5); Glucose 79 mg/dL (83-110); Potassium 4.3 mmol/L (3.5-5.1); Protein, Total 6.9 g/dL (5.8-8.1); Sodium 138 mmol/L (136-145)
[2022-10-19 14:20] LABS: ALT (SGPT) 17 U/L (8-55); AST (SGOT) 18 U/L (5-34); Albumin 3.6 g/dL (3.4-4.8); Alkaline Phosphatase 86 U/L (40-110); Anion Gap 12 mmol/L (10-20); BUN (Urea Nitrogen) 11 mg/dL (8.4-25.7); Bilirubin, Total 0.8 mg/dL (0.2-1.2); CK (CPK) 39 U/L (30-200); Calc. Creatinine Clearance 0 mL/min (70-130); Carbon Dioxide 27 mmol/L (23-31); Chloride 104 mmol/L (98-107); Estimated GFR 74; Globulin 3.2 g/dL (2.4-3.5); Glucose 81 mg/dL (83-110); Potassium 4.3 mmol/L (3.5-5.1); Protein, Total 6.8 g/dL (5.8-8.1); Sodium 139 mmol/L (136-145)
[2022-10-19] MEDS ORDERED: Aspirin 325 MG TAB ONE (14:30)
[2022-10-19] MEDS ORDERED: Acetaminophen 325 MG TAB PO PRN (15:08)
[2022-10-19] MEDS ORDERED: hydrALAZINE 20 MG/ML VIAL SLOW IVP PRN (15:08)
[2022-10-19 16:34] LABS: Troponin I 0.018 ng/mL (< 0.028)
[2022-10-19 18:23] LABS: SARS-CoV-2 NAA Rapid Test Not Detected (NotDetected)
[2022-10-19 19:43] LABS: Troponin I Less than 0.010 ng/mL (< 0.028)
[2022-10-19] MEDS: Finasteride 5 MG TAB PO SCH (23:06)
[2022-10-19] MEDS: Atorvastatin Calcium 40 MG TAB PO SCH (23:10)
[2022-10-19 23:14] VITALS: BMI 31.2
[2022-10-19] MEDS: Flecainide 50 MG TAB PO SCH (23:20)
[2022-10-20 05:51] LABS: #Eosinphils 0.1 thou/uL (0.0-0.7); #Lymphocytes 1.4 thou/uL (1.20-3.40); #Monocytes 0.6 thou/uL (0.11-0.59); #Neutrophils 6.6 thou/uL (1.40-6.50); %Basophils 0.3 % (0.0-1.0); %Eosinophils 1.5 % (0.0-10.0); %Lymphocytes 16.5 % (21.0-51.0); %Monocytes 6.6 % (0.0-10.0); %Neutrophils 75.2 % (42.0-75.0); Hemoglobin 13.6 g/dL (14.0-18.0); Mean Corpuscular HGB CONC 33.8 g/dL (32.0-36.0); Mean Corpuscular Hemoglobin 33.7 pg (27.0-31.0); Mean Corpuscular Volume 99.6 fl (78.0-98.0); Mean Platelet Volume 7.2 fL (7.4-10.4); Platelet Count 180 10x3/uL (130-400); Red Blood Cell (RBC) Count 4.04 mill/uL (4.70-6.10); White Blood Cell (WBC) Count 8.7 10x3/uL (4.8-10.8)
[2022-10-20 06:20] LABS: Anion Gap 11 mmol/L (10-20); Calc. Creatinine Clearance 83 mL/min (70-130); Calcium 9.1 mg/dL (7.8-10.44); Carbon Dioxide 29 mmol/L (23-31); Cardiac Risk 4.5 (Less than 4.5); Chloride 106 mmol/L (98-107); Cholesterol 158 mg/dl (< 200 Desired); Estimated GFR 74; Glucose 97 mg/dL (83-110); HDL Cholesterol 35 mg/dL (>60 Neg Risk); LDL Cholesterol, Calculated 110 mg/dL; Potassium 3.9 mmol/L (3.5-5.1); Sodium 142 mmol/L (136-145); Triglycerides 67 mg/dL (Less than 150)
[2022-10-20 06:24] LABS: BUN (Urea Nitrogen) 11 mg/dL (8.4-25.7); Magnesium 2.1 mg/dL (1.6-2.6)
[2022-10-20 06:46] LABS: Thyroid Stimulating Hormone 1.7386 uIU/mL (0.35-4.94)
[2022-10-20] MEDS: Aspirin 81 mg Enteric Coated Tablet PO SCH (08:59)
[2022-10-20] MEDS: Flecainide 50 MG TAB PO SCH ×2 (09:00→21:01)
[2022-10-20] MEDS: Furosemide 40 MG TAB PO SCH (09:00)
[2022-10-20 15:53] LABS: Bacteria/HPF 3+ HPF (None Seen); Bilirubin Negative (Negative); Blood, Urine Negative (Negative); Clarity Turbid (Clear); Glucose, Urine (Dipstick) Normal (Negative); Ketone, Urine Negative (Negative); Leukocyte 500 Leu/uL (Negative); Nitrite 1+ (Negative); Protein, Urine (Dipstick) Negative (Neg-Trace); Specific Gravity, Urine 1.009 (1.002-1.036); Squamous Epithelial 0-3 HPF (0-3); Urobilinogen Normal mg/dL (Less than 2); WBC/HPF Greater than 50 HPF (0-3); pH, Urine 7.5 (5.0-9.0)
[2022-10-20 15:54] LABS: Transitional Epithelial 0-3 HPF (None Seen)
[2022-10-20] MEDS: Carvedilol 25 MG TAB PO SCH (17:07)
[2022-10-20] MEDS ORDERED: Tamsulosin HCl 0.4 MG CAP PO SCH (21:00)
[2022-10-20] MEDS: Finasteride 5 MG TAB PO SCH (21:01)
[2022-10-20] MEDS: Atorvastatin Calcium 40 MG TAB PO SCH (21:01)
[2022-10-21] MEDS: Flecainide 50 MG TAB PO SCH (08:37)
[2022-10-21] MEDS: Aspirin 81 mg Enteric Coated Tablet PO SCH (08:37)
[2022-10-21] MEDS: Furosemide 40 MG TAB PO SCH (08:37)
[2022-10-21] MEDS: Carvedilol 25 MG TAB PO SCH (08:37)
[2022-10-21] MEDS ORDERED: cefTRIAXone\\ROCEPHIN 1 GM in Sodium Chloride 0.9% 100 ML IVPB SCH (10:00)
[2022-10-21 12:05] VITALS: BP 140/66; TEMP 97.8
== END 2022-10-21 14:50 | disposition home or self-care (01) | DRG 69 ==
LOC: ERS 12:35 → ERHOLD 14:31 → NEURO 21:35 → OBSVTOIN 10-21 14:15
PROVIDERS: ADMIT Internal Medicine; ATTEND Internal Medicine
DX: G45.9 Transient cerebral ischemic attack, unspecified (principal); I50.32 Chronic diastolic (congestive) heart failure; Z20.822 Contact with and (suspected) exposure to COVID-19; I48.0 Paroxysmal atrial fibrillation; R13.12 Dysphagia, oropharyngeal phase; I11.0 Hypertensive heart disease with heart failure; R33.9 Retention of urine, unspecified; I49.5 Sick sinus syndrome; N40.0 Benign prostatic hyperplasia without lower urinary tract symptoms; R47.1 Dysarthria and anarthria; Z95.0 Presence of cardiac pacemaker; Z79.899 Other long term (current) drug therapy; Z79.82 Long term (current) use of aspirin; Z91.030 Bee allergy status; Z88.0 Allergy status to penicillin; Z88.2 Allergy status to sulfonamides; Z91.011 Allergy to milk products; I25.2 Old myocardial infarction; Z82.49 Family history of ischemic heart disease and other diseases of the circulatory system; Z90.89 Acquired absence of other organs
CPT/HCPCS: 36415; 70450; 70496; 70498; 70551; 74230; 80048; 80053; 80061; 81001; 82550; 82607; 83036; 83735; 84443; 84484; 85025; 85610; 85730; 93005; 94760; G0378; J0696; J3490; Q9967

== ENCOUNTER 2025-04-19 10:21 | Outpatient (CLI) | payer MEDICARE | END 2025-04-19 10:22 | disposition home or self-care (01) | LOC: MRI 10:21 | PROVIDERS: ATTEND Nurse Practitioner Family | DX: R41.3 Other amnesia (principal); H91.93 Unspecified hearing loss, bilateral; R90.82 White matter disease, unspecified; I67.82 Cerebral ischemia; Z95.0 Presence of cardiac pacemaker | CPT/HCPCS: 70553; 71046; 76014; 76376 ==

== ENCOUNTER 2025-07-04 09:49 | Outpatient (CLI) | payer MEDICARE | END 2025-07-04 09:50 | disposition home or self-care (01) | LOC: ULT 09:49 | PROVIDERS: ATTEND Nurse Practitioner Family | DX: R74.8 Abnormal levels of other serum enzymes (principal) | CPT/HCPCS: 76705 ==